=== PATIENT | female | born 1950 | race Hispanic/Latino ===

== ENCOUNTER 2018-07-23 11:40 | Inpatient (IN) | payer MEDICARE, OTHER ==
[2018-07-23 11:40] VITALS: BMI 42.9
--- NOTE | 2018-07-23 12:38 | ED PDOC ---
Arrival/HPI - General Time Seen by Provider: 07/23/18 12:17 Historian: Patient - History of Present Illness Narrative History of Present Illness (Text): 07/23/18 12:38 Patient is a 68 year old female whose past medical history includes type 2 diabetes mellitus, who presents to the Emergency department complaining of fatigue, chills, and decreased appetite. Patient reports that 4 days ago she started experiencing intermittent right flank pain, nausea and had several episodes of vomiting. She notes that that the product of her vomit was her previous day's meal undigested. Her vomiting resolved the following day, but patient started feeling fatigued, experiencing chills, and continued to experience intermittent right flank pain. Of note patient doesn't remember if her flank pain occurred before, during, or after her episodes of vomiting started. She notes that for the past few days she has also been experiencing decreased appetite. Patient states having normal bowel movements PMD: Time/Duration: < week Symptom Onset: Sudden Symptom Course: Unchanged Context: Home Past Medical History - Provider Review Nursing Documentation Reviewed: Yes - Infectious Disease Hx of Infectious Diseases: None - Cardiac Hx Hypertension: Yes - Pulmonary Hx Respiratory Disorders: No - Neurological Hx Neurological Disorder: No Hx Migraine: No - HEENT Hx HEENT Disorder: Yes Hx Cataracts: Yes - Renal Hx Renal Disorder: Yes Hx Pyelonephritis: Yes Other/Comment: Kidney stones - Endocrine/Metabolic Hx Diabetes Mellitus Type 2: Yes - Hematological/Oncological Hx Blood Disorders: No - Integumentary Hx Dermatological Disorder: No - Musculoskeletal/Rheumatological Hx Back Pain: Yes Hx Falls: Yes - Gastrointestinal Hx Gastrointestinal Disorders: Yes Hx Gastroesophageal Reflux: Yes - Genitourinary/Gynecological Hx Genitourinary Disorders: Yes Hx Hematuria: Yes Hx Urinary Tract Infection: Yes - Psychiatric Hx Substance Use: No - Surgical History Other/Comment: Broken ear drum Family/Social History - Physician Review Nursing Documentation Reviewed: Yes Family/Social History: No Known Family HX Smoking Status: Never Smoked Hx Alcohol Use: No Hx Substance Use: No Allergies/Home Meds Allergies/Adverse Reactions: Allergies No Known Allergies Allergy (Verified 07/23/18 12:47) Home Medications: Home Meds Medication Instructions Recorded Confirmed PARoxetine [Paxil] 20 mg PO BID 03/24/16 03/24/16 metFORMIN [glucOPHAGE] 1,000 mg PO BID 03/24/16 03/24/16 Review of Systems - Review of Systems Constitutional: Fatigue, Fevers, Night Sweats Eyes: absent: Vision Changes ENT: absent: Hearing Changes, Sore Throat, Rhinorrhea, Sinus Congestion Respiratory: absent: SOB, Cough Cardiovascular: absent: Chest Pain, Palpitations, Edema, AYERS Gastrointestinal: Nausea, Vomiting, Appetite Changes. absent: Abdominal Pain, Constipation, Diarrhea, Hematochezia, Food Intolerance Genitourinary Female: Frequency. absent: Dysuria, Hematuria, Vaginal Bleeding, Vaginal Discharge Musculoskeletal: Back Pain. absent: Arthralgias Skin: absent: Rash Neurological: absent: Headache, Dizziness Endocrine: absent: Diaphoresis, Polyuria Hemo/Lymphatic: absent: Easy Bleeding Psychiatric: absent: Depression Physical Exam - Physical Exam Narrative Physical Exam (Text): 07/23/18 12:38 Head: Atraumatic. Normocephalic. Eyes: PERRL. EOMI. Conjunctivae are not pale. Sclera anicteric. ENT: Mucous membranes are moist and intact. Oropharynx is clear and symmetric. Neck: Supple. Full ROM. No JVD. No lymphadenopathy. No meningeal signs. Cardiovascular: Regular rate. Regular rhythm. Systolic murmur noted. Distal pulses intact. Pulmonary/Chest: No evidence of respiratory distress. Clear to auscultation bilaterally. No wheezing, rales or rhonchi. No accessory muscle usage. Abdominal: Obese. Soft. Nontender. No pulsatile masses. No rebound or guarding. Back: Right sided cva tenderness noted. Extremities: No pitting edema. No cyanosis. No clubbing. No calf pain. Full range of motion in all extremities. No warmth or erythema. Skin: Skin is warm and dry. No petechiae. No purpura. Neurological: Alert, awake, and oriented. Motor and sensory exam intact. Psychiatric: Good eye contact. Normal interaction, affect, and behavior. Rectal: no gross bleeding Vital Signs Reviewed: Yes Temperature: Afebrile Blood Pressure: Normal Pulse: Regular Respiratory Rate: Normal Appearance: Positive for: Non-Toxic, Uncomfortable Pain Distress: Mild Mental Status: Positive for: Alert and Oriented X 3 Medical Decision Making ED Course and Treatment: 07/23/18 12:38 Impression: 68 year old patient who experienced episodes of nausea and vomiting 4 days ago, and is complaining of fatigue and chills for the past 3 days with decreased appetite. Plan: -- VBG -- Abdominal and Pelvic CT without contrast -- EKG -- Cardiac enzymes -- Blood work -- Chest X-ray -- Urine culture -- Urinalysis -- IV fluids -- Reassess and disposition Prior Visits: Notes and results from previous visits were reviewed. Patient was last seen in the emergency department on 03/24/16 for weakness and dizziness. She was hospitalized for UTI and pyelonephritis. Progress Notes: Patient on initial evaluation denies abdominal pain and reports "chronic" back pain. Some mild right sided cva tenderness is noted. She states she has been eating and moving her bowels without difficulty but generally has bee feeling "weak". SHE IS AFEBRILE. Initial WBC unremarkable. She is not tachycardic or tachypneic. Blood pressure stable on re-evaluation. Although lactate is mildly elevated she currently does not exhibit SIRS although she is diabetic and I feel at risk of this. UTI noted. Cultures ordered and iv antibiotics initiated. 07/23/18 13:20 Chest X-ray: Dictator : Kiel Cooney MD IMPRESSION: No active disease. 07/23/18 14:[address] without IV Contrast: Dictator : Kiel Cooney MD IMPRESSION: There is an 11 mm stone in the proximal right ureter with mild hydronephrosis. There is a large rim calcified stone in the gallbladder. This measures 4.5 cm in diameter and 6 cm in length. 07/23/18 14:37 On re-examination the patient denies acute pain or nausea. CT findings reviewed with patient as well as labs revealing Cr of 2.0. Case d.w PMD Dr. Romo. After communicating with admitting, request to admit to hospitalist service at this time. I communicated with hospitalist Dr. Huerta, who will admit patient to her service at this time. I communicated with on-call urologist Dr. Mcallister regarding UTI, abnormal CT findings. Dr. Mcallister will take patient to OR today. Dr. Huerta evaluated patient in ED, who reportedly informed her earlier in the day she felt very weak and "fell to ground" but denies trauma or injury. Given this history we will admit to telmetry for monitoring for possible near syncope, risk of sepsis. She denies chest pain or shortness of breath. Dr. Romo has been updated with admitting plan and admitting physician. Gallstone noted on CT, although patient currently with no palpable abdominal pain, and initial LFTs and WBC unremarkable. 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 I have reviewed the chart and agree that the record accurately reflects my personal performance of the history, physical exam, medical decision making, and the department course for this patient. I have also personally directed, reviewed, and agree with the discharge instructions and disposition. Disposition/Present on Arrival - Present on Arrival Any Indicators Present on Arrival: Yes History of DVT/PE: No History of Uncontrolled Diabetes: Yes Urinary Catheter: No History Surgical Site Infection Following: None - Disposition Have Diagnosis and Disposition been Completed?: Yes Diagnosis: Urinary tract infection, Near syncope, Nephrolithiasis Disposition: HOSPITALIZED Disposition Time: 13:50 Patient Plan: Admission, Telemetry Patient Problems: Current Active Problems Problem Status Onset Near syncope Acute Nephrolithiasis Acute Urinary tract infection Acute Condition: SERIOUS
[2018-07-23 13:08] LABS: URINE BILIRUBIN MODERATE (NEGATIVE); URINE BLOOD LARGE (NEGATIVE); URINE GLUCOSE (UA) NEGATIVE (NEGATIVE); URINE LEUKOCYTE ESTERASE LARGE Leu/uL (NEGATIVE); URINE PROTEIN 100 mg/dL (<30 mg/dL)
[2018-07-23 13:11] LABS: URINE APPEARANCE CLOUDY (CLEAR); URINE COLOR DARK YELLOW (YELLOW)
--- NOTE | 2018-07-23 13:14 | RAD ---
Date of service: 07/23/2018 PROCEDURE: CHEST RADIOGRAPH, 1 VIEW HISTORY: nausea/vomiting, back pain COMPARISON: 03/24/2016 FINDINGS: LUNGS: Clear. PLEURA: No pneumothorax or pleural fluid seen. CARDIOVASCULAR: Mild cardiomegaly OSSEOUS STRUCTURES: No significant abnormalities. VISUALIZED UPPER ABDOMEN: Normal. OTHER FINDINGS: None. IMPRESSION: No active disease.
[2018-07-23 13:17] LABS: URINE BACTERIA LARGE (NEG); URINE EPITHELIAL CELLS 0 - 2 /hpf (0-5); URINE WBC TNTC /hpf (0-6)
[2018-07-23] MEDS ORDERED: cefTRIAXone 1 gm 1 GM/100 ML BAG IVPB STA (13:18)
[2018-07-23 13:33] LABS: BASO # 0.01 K/mm3 (0.0-2.0); BASO % 0.1 % (0.0-3.0); EOS % 0.4 % (1.5-5.0); GRAN # 8.16 (1.4-6.5); GRAN % 87.4 % (50.0-68.0); HEMOGLOBIN 14.9 g/dL (12.0-16.0); LYMPH # 0.5 (1.2-3.4); LYMPH % 5.6 % (22.0-35.0); MEAN CELL VOLUME 85.1 fl (80.0-105.0); MEAN CORPUSCULAR HEMOGLOBIN 29.6 pg (25.0-35.0); MEAN CORPUSCULAR HGB CONC 34.8 g/dl (31.0-37.0); MEAN PLATELET VOLUME 9.2 fl (7.0-11.0); MONO # 0.6 (0.1-0.6); MONO % 6.5 % (1.0-6.0); RBC 5.03 10^6/uL (3.5-6.1); RED CELL DISTRIBUTION WIDTH 13.4 % (11.5-14.5); WHITE BLOOD COUNT 9.3 10^3/uL (4.5-11.0)
[2018-07-23 13:34] LABS: VENOUS BLOOD GAS BASE EXCESS -2.8 mmol/L (0.0-2.0); VENOUS BLOOD GAS PO2 33 mm/Hg (30-55)
[2018-07-23 13:37] LABS: INR 1.12; PARTIAL THROMBOPLASTIN TIME 28.5 Seconds (25.1-36.5); PROTHROMBIN TIME 12.9 SECONDS (9.4-12.5)
[2018-07-23 13:52] LABS: ALBUMIN 3.9 g/dL (3.0-4.8); ALT/SGPT 18 U/L (7-56); AST/SGOT 31 U/L (14-36); BLOOD UREA NITROGEN 39 mg/dL (7-21); CALCIUM 10.3 mg/dL (8.4-10.5); GFR NON-AFRICAN AMERICAN 25
[2018-07-23] MEDS ORDERED: Sodium Chloride 0.9% 1,000 ML IV STA (14:04)
[2018-07-23 14:22] LABS: TROPONIN I < 0.01 ng/mL
[2018-07-23] MEDS: Sodium Chloride 0.9% 1,000 ML IV SCH (14:24)
--- NOTE | 2018-07-23 14:31 | CT ---
Date of service: 07/23/2018 PROCEDURE: CT Abdomen and Pelvis without intravenous contrast HISTORY: right flank pain COMPARISON: 03/24/2016 TECHNIQUE: Without contrast. Contrast dose: Radiation dose: Total exam DLP = 1202.29 mGy-cm. This CT exam was performed using one or more of the following dose reduction techniques: Automated exposure control, adjustment of the mA and/or kV according to patient size, and/or use of iterative reconstruction technique. FINDINGS: LOWER THORAX: Unremarkable. LIVER: Unremarkable. No gross lesion or ductal dilatation. GALLBLADDER AND BILE DUCTS: There is a large rim calcified stone in the gallbladder. This measures 4.5 cm in diameter and 6 cm in length. PANCREAS: Unremarkable. No gross lesion or ductal dilatation. SPLEEN: Unremarkable. ADRENALS: Unremarkable. No mass. KIDNEYS AND URETERS: There is an 11 mm stone in the proximal right ureter with mild hydronephrosis. VASCULATURE: Unremarkable. No aortic aneurysm. No aortic atherosclerotic calcification or mural plaque present. BOWEL: Unremarkable. No obstruction. No gross mural thickening. APPENDIX: Unremarkable. Normal appendix. PERITONEUM: Unremarkable. No free fluid. No free air. LYMPH NODES: Unremarkable. No enlarged lymph nodes. BLADDER: Unremarkable. REPRODUCTIVE: 4.8 cm right adnexal cyst. BONES: Multilevel disc degeneration in the lumbar spine OTHER FINDINGS: None. IMPRESSION: There is an 11 mm stone in the proximal right ureter with mild hydronephrosis. There is a large rim calcified stone in the gallbladder. This measures 4.5 cm in diameter and 6 cm in length.
[2018-07-23] MEDS: Potassium Chloride 20 mEq ER Tab PO STA ×2 (14:43→14:47)
[2018-07-23] MEDS ORDERED: Morphine 2 mg/ml ISec IVP PRN (15:09)
--- NOTE | 2018-07-23 15:28 | CP.PCM.HP ---
<Lori Bunch - Last Filed: 07/23/18 15:03> History of Present Illness - History of Present Illness History of Present Illness: Lori Bunch, PGY2, H&P for Dr Huerta: CC: right flank pain, vomiting 68 year old female with PMH HTN, DM, arthritis, nerve damage, presents for intermittent right flank pain, vomiting, decreased appetite for past 4-5 days. Patient states that she had a "urinary infection" 2 years ago with similar symptoms. Reports sujective fevers, chills, nausea, vomiting, dysuria since Wednesday. Denies chest pain, sob, cough, body aches, abdominal pain, diarrhea, constipation, leg swelling, headaches, blurred vision, neck pain. In Ed, patient afebrile, hemodynamically stable. CT abd pelvis showed 11 mm right sided ureteral stone with hydronephrosis. Dr Mcallister notified, will undergo OR procedure. 12 point ROS obtained and neg, except as per HPI. PMD [facility] [employer] PMH: HTN (controlled), DM, arthritis, nerve damage PSH: denies All: seasonal FH: CHF in father, mother, aunt No cancer Sh: lives by self. brother in above apartment in 2 family house. Denies alcohol, tobacco, drug use. Lost cane with good support recently. Present on Admission - Present on Admission Any Indicators Present on Admission: No History of DVT/PE: No History of Uncontrolled Diabetes: No Urinary Catheter: No Decubitus Ulcer Present: No Review of Systems - Review of Systems All systems: reviewed and no additional remarkable complaints except Review of Systems: as per hPI Past Patient History - Infectious Disease Hx of Infectious Diseases: None - Past Social History Smoking Status: Never Smoked - CARDIAC Hx Hypertension: Yes - PULMONARY Hx Respiratory Disorders: No - NEUROLOGICAL Hx Neurological Disorder: No Hx Migraine: No - HEENT Hx HEENT Problems: Yes Hx Cataracts: Yes - RENAL Hx Chronic Kidney Disease: Yes Hx Pyelonephritis: Yes Other/Comment: Kidney stones - ENDOCRINE/METABOLIC Hx Diabetes Mellitus Type 2: Yes - HEMATOLOGICAL/ONCOLOGICAL Hx Blood Disorders: No - INTEGUMENTARY Hx Dermatological Problems: No - MUSCULOSKELETAL/RHEUMATOLOGICAL Hx Back Pain: Yes Hx Falls: Yes - GASTROINTESTINAL Hx Gastrointestinal Disorders: Yes Hx Gastroesophageal Reflux: Yes - GENITOURINARY/GYNECOLOGICAL Hx Genitourinary Disorders: Yes Hx Hematuria: Yes Hx Urinary Tract Infection: Yes - PSYCHIATRIC Hx Substance Use: No - SURGICAL HISTORY Other/Comment: Broken ear drum Meds Allergies/Adverse Reactions: Allergies Allergy/AdvReac Type Severity Reaction Status Date / Time No Known Allergies Allergy Verified 07/23/18 12:47 Physical Exam - Constitutional Appears: Non-toxic, No Acute Distress - Head Exam Head Exam: ATRAUMATIC, NORMOCEPHALIC - Eye Exam Eye Exam: EOMI, PERRL. absent: Conjunctival injection, Nystagmus, Scleral icterus Pupil Exam: NORMAL ACCOMODATION, PERRL. absent: Miosis, Mydriatic - ENT Exam ENT Exam: Mucous Membranes Moist - Neck Exam Neck exam: Positive for: Full Rom - Respiratory Exam Respiratory Exam: Clear to Auscultation Bilateral, NORMAL BREATHING PATTERN. absent: Decreased Breath Sounds, Rales, Rhonchi, Wheezes, Respiratory Distress, Stridor - Cardiovascular Exam Cardiovascular Exam: RRR, +S1, +S2. absent: Systolic Murmur - GI/Abdominal Exam GI & Abdominal Exam: Normal Bowel Sounds, Soft (+ morbidly obese). absent: Firm, Rebound, Rigid, Tenderness - Extremities Exam Extremities exam: Positive for: normal inspection. Negative for: calf tenderness, pedal edema - Back Exam Back exam: NORMAL INSPECTION. absent: CVA tenderness (L), CVA tenderness (R) - Neurological Exam Neurological exam: Alert, Oriented x3 - Psychiatric Exam Psychiatric exam: Normal Affect, Normal Mood - Skin Skin Exam: Dry, Normal Color, Warm Results - Vital Signs Recent Vital Signs: Last Vital Signs Temp 98.1 F 07/23/18 11:40 Pulse 85 07/23/18 14:22 Resp 18 07/23/18 14:22 BP 138/70 07/23/18 14:22 Pulse Ox 95 07/23/18 14:22 - Labs Result Diagrams: 07/23/18 13:05 07/23/18 13:05 Labs: Laboratory Results - last 24 hr 07/23/18 07/23/18 07/23/18 13:00 13:05 13:05 WBC 9.3 RBC 5.03 Hgb 14.9 Hct 42.8 MCV 85.1 MCH 29.6 MCHC 34.8 RDW 13.4 Plt Count 178 MPV 9.2 Gran % 87.4 H Lymph % (Auto) 5.6 L Oliver % (Auto) 6.5 H Eos % (Auto) 0.4 L Baso % (Auto) 0.1 Gran # 8.16 H Lymph # (Auto) 0.5 L Oliver # (Auto) 0.6 Eos # (Auto) 0.0 Baso # (Auto) 0.01 PT 12.9 H INR 1.12 APTT 28.5 pO2 VBG pH VBG pCO2 VBG HCO3 VBG Total CO2 VBG O2 Sat (Calc) VBG Base Excess VBG Potassium Sodium Chloride Glucose Lactate FiO2 Potassium Carbon Dioxide Anion Gap BUN Creatinine Est GFR ( Amer) Est GFR (Non-Af Amer) Random Glucose Calcium Total Bilirubin AST ALT Alkaline Phosphatase Lactate Dehydrogenase Total Creatine Kinase Troponin I Total Protein Albumin Globulin Albumin/Globulin Ratio Venous Blood Potassium Urine Color Dark yellow Urine Appearance Cloudy Urine pH 6.[address] [place] >= 1.030 Urine Protein 100 H Urine Glucose (UA) Negative Urine Ketones Trace H Urine Blood Large H Urine Nitrate Positive H Urine Bilirubin Moderate H Urine Urobilinogen 4.0 H Ur Leukocyte Esterase Large H Urine RBC 2 - 5 Urine WBC Tntc Ur Epithelial Cells 0 - 2 Urine Bacteria Large 07/23/18 07/23/18 13:05 13:05 WBC RBC Hgb Hct MCV MCH MCHC RDW Plt Count MPV Gran % Lymph % (Auto) Oliver % (Auto) Eos % (Auto) Baso % (Auto) Gran # Lymph # (Auto) Oliver # (Auto) Eos # (Auto) Baso # (Auto) PT INR APTT pO2 33 VBG pH 7.30 L VBG pCO2 49.0 VBG HCO3 24.1 VBG Total CO2 25.6 VBG O2 Sat (Calc) 65.2 H VBG Base Excess -2.8 L VBG Potassium 3.6 Sodium 135.0 137 Chloride 99.0 99 Glucose 182 H Lactate 2.7 H FiO2 21.0 Potassium 3.5 L Carbon Dioxide 23 Anion Gap 19 BUN 39 H Creatinine 2.0 H Est GFR ( Amer) 30 Est GFR (Non-Af Amer) 25 Random Glucose 178 H Calcium 10.3 Total Bilirubin 1.6 H AST 31 ALT 18 Alkaline Phosphatase 153 H Lactate Dehydrogenase 413 Total Creatine Kinase 56 Troponin I < 0.01 Total Protein 7.8 Albumin 3.9 Globulin 3.9 Albumin/Globulin Ratio 1.0 L Venous Blood Potassium 3.6 Urine Color Urine Appearance Urine pH Ur Specific [place] Urine Protein Urine Glucose (UA) Urine Ketones Urine Blood Urine Nitrate Urine Bilirubin Urine Urobilinogen Ur Leukocyte Esterase Urine RBC Urine WBC Ur Epithelial Cells Urine Bacteria Assessment & Plan - Assessment and Plan (Free Text) Assessment: 68 year old female with PMH HTN, DM, arthritis, nerve damage, presents for intermittent right flank pain, vomiting, decreased appetite, found to have large right sided obstructing ureteral stone and possible pyelonephritis: Nephrolithiasis and UTI/?pyelonephritis: - CT abd pelvis shows 11 mm stone in the proximal right ureter with mild hydronephrosis. - Dr Mcallister Urology on board. appreciate recs. Plan for urgent stone removal. appreciate help. - zofran prn, morphine prn pain - UA pos for blood and UTI, - lactate 2.4 - 2/2 metformin vs unlikely sepsis. Will stop metformin in house. - f/u urine culture, blood culture - Monitor vitals Elevated bilirubin: 2/2 obstructing gallstone - t bili 1.6, AST/ALT normal. ALP 153 - CT abd pelvis shows a large rim calcified stone in the gallbladder. This measures 4.5 cm in diameter and 6 cm in length. - Abd US - direct bili ordered - Consider surgery consult/GI consult. Hx of HTN: - BP on low end in ED - will hold home losartan Hx of DM: - lactate 2.4 - hold home metformin - Hgb A1C - ISS low - NPO currently PPX: protonix, SCDs NPO PT eval Case seen and discussed with Dr Huerta. <No Huerta - Last Filed: 07/24/18 11:53> Results - Vital Signs Recent Vital Signs: Last Vital Signs Temp 98.4 F 07/24/18 06:00 Pulse 69 07/24/18 06:00 Resp 20 07/24/18 06:00 BP 114/58 L 07/24/18 06:00 Pulse Ox 97 07/24/18 06:00 - Labs Result Diagrams: 07/24/18 07:30 07/24/18 07:30 Labs: Laboratory Results - last 24 hr 07/23/18 07/23/18 07/23/18 13:00 13:05 13:05 WBC 9.3 RBC 5.03 Hgb 14.9 Hct 42.8 MCV 85.1 MCH 29.6 MCHC 34.8 RDW 13.4 Plt Count 178 MPV 9.2 Gran % 87.4 H Lymph % (Auto) 5.6 L Oliver % (Auto) 6.5 H Eos % (Auto) 0.4 L Baso % (Auto) 0.1 Gran # 8.16 H Lymph # (Auto) 0.5 L Oliver # (Auto) 0.6 Eos # (Auto) 0.0 Baso # (Auto) 0.01 PT 12.9 H INR 1.12 APTT 28.5 pO2 VBG pH VBG pCO2 VBG HCO3 VBG Total CO2 VBG O2 Sat (Calc) VBG Base Excess VBG Potassium Sodium Chloride Glucose Lactate FiO2 Potassium Carbon Dioxide Anion Gap BUN Creatinine Est GFR ( Amer) Est GFR (Non-Af Amer) POC Glucose (mg/dL) Random Glucose Uric Acid Calcium Phosphorus Magnesium Total Bilirubin Direct Bilirubin AST ALT Alkaline Phosphatase Lactate Dehydrogenase Total Creatine Kinase Troponin I Total Protein Albumin Globulin Albumin/Globulin Ratio Venous Blood Potassium Urine Color Dark yellow Urine Appearance Cloudy Urine pH 6.[address] [place] >= 1.030 Urine Protein 100 H Urine Glucose (UA) Negative Urine Ketones Trace H Urine Blood Large H Urine Nitrate Positive H Urine Bilirubin Moderate H Urine Urobilinogen 4.0 H Ur Leukocyte Esterase Large H Urine RBC 2 - 5 Urine WBC Tntc Ur Epithelial Cells 0 - 2 Urine Bacteria Large 07/23/18 07/23/18 07/23/18 13:05 13:05 13:16 WBC RBC Hgb Hct MCV MCH MCHC RDW Plt Count MPV Gran % Lymph % (Auto) Oliver % (Auto) Eos % (Auto) Baso % (Auto) Gran # Lymph # (Auto) Oliver # (Auto) Eos # (Auto) Baso # (Auto) PT INR APTT pO2 33 VBG pH 7.30 L VBG pCO2 49.0 VBG HCO3 24.1 VBG Total CO2 25.6 VBG O2 Sat (Calc) 65.2 H VBG Base Excess -2.8 L VBG Potassium 3.6 Sodium 135.0 137 Chloride 99.0 99 Glucose 182 H Lactate 2.7 H FiO2 21.0 Potassium 3.5 L Carbon Dioxide 23 Anion Gap 19 BUN 39 H Creatinine 2.0 H Est GFR ( Amer) 30 Est GFR (Non-Af Amer) 25 POC Glucose (mg/dL) 176 H Random Glucose 178 H Uric Acid Calcium 10.3 Phosphorus Magnesium Total Bilirubin 1.6 H Direct Bilirubin AST 31 ALT 18 Alkaline Phosphatase 153 H Lactate Dehydrogenase 413 Total Creatine Kinase 56 Troponin I < 0.01 Total Protein 7.8 Albumin 3.9 Globulin 3.9 Albumin/Globulin Ratio 1.0 L Venous Blood Potassium 3.6 Urine Color Urine Appearance Urine pH Ur Specific [place] Urine Protein Urine Glucose (UA) Urine Ketones Urine Blood Urine Nitrate Urine Bilirubin Urine Urobilinogen Ur Leukocyte Esterase Urine RBC Urine WBC Ur Epithelial Cells Urine Bacteria 07/23/18 07/23/18 07/23/18 14:30 14:30 16:58 WBC RBC Hgb Hct MCV MCH MCHC RDW Plt Count MPV Gran % Lymph % (Auto) Oliver % (Auto) Eos % (Auto) Baso % (Auto) Gran # Lymph # (Auto) Oliver # (Auto) Eos # (Auto) Baso # (Auto) PT INR APTT pO2 VBG pH VBG pCO2 VBG HCO3 VBG Total CO2 VBG O2 Sat (Calc) VBG Base Excess VBG Potassium Sodium Chloride Glucose Lactate FiO2 Potassium Carbon Dioxide Anion Gap BUN Creatinine Est GFR ( Amer) Est GFR (Non-Af Amer) POC Glucose (mg/dL) 122 H Random Glucose Uric Acid 8.3 H Calcium Phosphorus Magnesium Total Bilirubin Direct Bilirubin 1.2 H AST ALT Alkaline Phosphatase Lactate Dehydrogenase Total Creatine Kinase Troponin I Total Protein Albumin Globulin Albumin/Globulin Ratio Venous Blood Potassium Urine Color Urine Appearance Urine pH Ur Specific [place] Urine Protein Urine Glucose (UA) Urine Ketones Urine Blood Urine Nitrate Urine Bilirubin Urine Urobilinogen Ur Leukocyte Esterase Urine RBC Urine WBC Ur Epithelial Cells Urine Bacteria 07/23/18 07/23/18 07/24/18 20:06 21:31 07:30 WBC 7.5 RBC 4.44 Hgb 12.7 D Hct 37.8 MCV 85.1 MCH 28.6 MCHC 33.6 RDW 13.4 Plt Count 159 MPV 8.8 Gran % 75.5 H Lymph % (Auto) 11.5 L Oliver % (Auto) 11.2 H Eos % (Auto) 1.5 Baso % (Auto) 0.3 Gran # 5.66 Lymph # (Auto) 0.9 L Oliver # (Auto) 0.8 H Eos # (Auto) 0.1 Baso # (Auto) 0.02 PT INR APTT pO2 19 L VBG pH 7.27 L VBG pCO2 56.0 VBG HCO3 25.7 VBG Total CO2 27.4 VBG O2 Sat (Calc) 26.7 L VBG Base Excess -2.1 L VBG Potassium 3.4 L Sodium 137.0 Chloride 100.0 Glucose 142 H Lactate 1.8 FiO2 21.0 Potassium Carbon Dioxide Anion Gap BUN Creatinine Est GFR ( Amer) Est GFR (Non-Af Amer) POC Glucose (mg/dL) 123 H Random Glucose Uric Acid Calcium Phosphorus Magnesium Total Bilirubin Direct Bilirubin AST ALT Alkaline Phosphatase Lactate Dehydrogenase Total Creatine Kinase Troponin I Total Protein Albumin Globulin Albumin/Globulin Ratio Venous Blood Potassium 3.4 L Urine Color Urine Appearance Urine pH Ur Specific [place] Urine Protein Urine Glucose (UA) Urine Ketones Urine Blood Urine Nitrate Urine Bilirubin Urine Urobilinogen Ur Leukocyte Esterase Urine RBC Urine WBC Ur Epithelial Cells Urine Bacteria 07/24/18 07:30 WBC RBC Hgb Hct MCV MCH MCHC RDW Plt Count MPV Gran % Lymph % (Auto) Oliver % (Auto) Eos % (Auto) Baso % (Auto) Gran # Lymph # (Auto) Oliver # (Auto) Eos # (Auto) Baso # (Auto) PT INR APTT pO2 VBG pH VBG pCO2 VBG HCO3 VBG Total CO2 VBG O2 Sat (Calc) VBG Base Excess VBG Potassium Sodium 137 Chloride 105 Glucose Lactate FiO2 Potassium 4.0 Carbon Dioxide 24 Anion Gap 12 BUN 37 H Creatinine 1.6 H Est GFR ( Amer) 39 Est GFR (Non-Af Amer) 32 POC Glucose (mg/dL) Random Glucose 99 Uric Acid Calcium 9.7 Phosphorus 4.3 Magnesium 1.9 Total Bilirubin 0.8 Direct Bilirubin AST 30 ALT 26 Alkaline Phosphatase 118 Lactate Dehydrogenase Total Creatine Kinase Troponin I Total Protein 6.5 Albumin 3.2 Globulin 3.3 Albumin/Globulin Ratio 1.0 L Venous Blood Potassium Urine Color Urine Appearance Urine pH Ur Specific [place] Urine Protein Urine Glucose (UA) Urine Ketones Urine Blood Urine Nitrate Urine Bilirubin Urine Urobilinogen Ur Leukocyte Esterase Urine RBC Urine WBC Ur Epithelial Cells Urine Bacteria Attending/Attestation - Attestation I have personally seen and examined this patient.: Yes I have fully participated in the care of the patient.: Yes I have reviewed all pertinent clinical information: Yes Notes (Text): 07/24/18 11:48 attending note; Patient seen and examined with anh in the ER. Patient is alert and awake. Currently denies any fevers, chills. Complaining of mild urinary discomfort. Denies any chest pain, shortness of breath. Denies any nausea, vomiting. Patient is a 68 year old female with PMH of HTN, DM, arthritis, obesity presents for intermittent right flank pain, vomiting, decreased appetite for past 4-5 days. Patient is complaining of fevers and chills for the past few days. Patient also had right flank pain. CT abdomen and pelvis showed 11 millimeter right ureteral stone with hydronep hrosis. case discussed with urology in detail by ER attending. Plan for cystoscopy And ureteral stent placement today. Diabetes; continue IV fluid. patient is nothing by mouth for the procedure. Monitor with regular insulin sliding scale. IV morphine for pain control. The diagnosis, treatment plan discussed with patient in detail. Upon discharge the patient will follow-up with PMD Dr. Romo. Patient was signed out to PMD. He will follow the patient from tomorrow. 07/24/18 11:52
--- NOTE | 2018-07-23 15:40 | CARD ---
APPROVED REPORT Date of service: 07/23/2018 EKG Measurement Heart [id number] <Conclusion> Normal sinus rhythm Normal ECG
--- NOTE | 2018-07-23 16:22 | US ---
Date of service: 07/23/2018 HISTORY: elevated total bili, stone? COMPARISON: CT scan same day TECHNIQUE: Sonographic evaluation of the abdomen. FINDINGS: LIVER: Measures 15.1 x 15.1 cm. Normal echogenicity of the liver parenchyma. No mass. No intrahepatic bile duct dilatation. GALLBLADDER: Large gallstone with rim calcification COMMON BILE DUCT: Measures 5 mm. No stones. No dilatation. PANCREAS: Unremarkable as visualized. No mass. No ductal dilatation. RIGHT KIDNEY: Measures 10.27 x 6.73 x 5.66cm. Normal echogenicity. No calculus, mass, or hydronephrosis. Right-sided hydronephrosis LEFT KIDNEY: Measures 10.18 x 5.50 x 6.10cm. Normal echogenicity. No calculus, mass, or hydronephrosis. SPLEEN: Normal in size and contour. No mass. 12.33 x 4.69 AORTA: No aneurysmal dilatation. IVC: Unremarkable. OTHER FINDINGS: None. IMPRESSION: Large gallstone. Right-sided hydronephrosis secondary to proximal ureteral stone. Both findings demonstrated on CT from earlier today
[2018-07-23] MEDS ORDERED: Gentamicin 80 mg/2mL Inj. ONE (16:49)
[2018-07-23] MEDS ORDERED: Iohexol 240 (50 ml) ONE (16:49)
[2018-07-23] MEDS ORDERED: Propofol 10 mg/ml Inj (20 ML) ONE (17:31)
[2018-07-23] MEDS ORDERED: Midazolam 2 MG/2 ML VIAL ONE (17:32)
[2018-07-23] MEDS ORDERED: Lactated Ringer's 1,000 ML IV SCH (18:15)
[2018-07-23 20:31] LABS: VENOUS BLOOD GAS BASE EXCESS -2.1 mmol/L (0.0-2.0); VENOUS BLOOD GAS PO2 19 mm/Hg (30-55); VENOUS BLOOD PH 7.27 (7.32-7.43)
[2018-07-23] MEDS: Insulin Reg-LOW-Coverage SC SCH (21:57)
[2018-07-24] MEDS: Sodium Chloride 0.9% 1,000 ML IV SCH ×2 (03:50→17:35)
--- NOTE | 2018-07-24 06:07 | OP ---
PROCEDURE DATE: 07/23/2018 PREOPERATIVE DIAGNOSES: Right ureteral calculus, right hydronephrosis. POSTOPERATIVE DIAGNOSES: Right ureteral calculus, right hydronephrosis. PROCEDURE: Cystoscopy, right retrograde pyelogram, insertion of right ureteral stent. ATTENDING SURGEON: Evangelista Mcallister MD. ANESTHESIA: General. SPECIMENS: There were none. DRAIN: A 6 x 24 right ureteral stent. COMPLICATIONS: There were none. OPERATIVE FINDINGS: After informed consent was obtained, the patient was taken to the operating room, placed on the operating table. Anesthesia was administered. The patient was then placed in the dorsal lithotomy position and prepped and draped in the usual sterile fashion. A 21-Yoruba cystoscope was passed into the patient's bladder and a full survey inspection was performed. There were no stones, papillary tumors or foreign bodies of the bladder noted. Both ureteral orifices were visualized and appeared within normal limits. At this point, a 5-Yoruba [place] catheter was introduced through the scope into the right ureteral orifice. When inside the orifice, contrast was then instilled into the ureter during real-time fluoroscopy. There was noted to be a filling defect in the upper ureter with dilatation of the ureter above this and mild hydronephrosis. At this point, a sensor wire was obtained. The sensor wire was passed through the open-ended catheter and advanced fluoroscopically up the ureter. It was able to be manipulated around the filling defect and coiled in the upper collecting system. At this point, the open-ended ureteral catheter was removed and a 6 x 24 stent was obtained. The stent was then passed through the cystoscope over the wire and into the right ureter. The stent was advanced under both direct and fluoroscopic guidance until it was in at the appropriate position. When the stent was in place, the guidewire was removed. A coil was seen in the renal pelvis on fluoroscopy. A coil was seen in the bladder on cystoscopy. A large amount of turbid urine was then noted to be exiting from the stent. At this point, the procedure was completed. The bladder was drained. The cystoscope was removed. The patient tolerated the procedure well and she was taken to the recovery room awake in stable condition. Evangelista Mcallister MD
[2018-07-24 08:11] LABS: BASO # 0.02 K/mm3 (0.0-2.0); BASO % 0.3 % (0.0-3.0); EOS # 0.1 (0.0-0.7); EOS % 1.5 % (1.5-5.0); GRAN # 5.66 (1.4-6.5); GRAN % 75.5 % (50.0-68.0); HEMOGLOBIN 12.7 g/dL (12.0-16.0); LYMPH # 0.9 (1.2-3.4); LYMPH % 11.5 % (22.0-35.0); MEAN CELL VOLUME 85.1 fl (80.0-105.0); MEAN CORPUSCULAR HEMOGLOBIN 28.6 pg (25.0-35.0); MEAN CORPUSCULAR HGB CONC 33.6 g/dl (31.0-37.0); MEAN PLATELET VOLUME 8.8 fl (7.0-11.0); MONO # 0.8 (0.1-0.6); MONO % 11.2 % (1.0-6.0); RBC 4.44 10^6/uL (3.5-6.1); RED CELL DISTRIBUTION WIDTH 13.4 % (11.5-14.5); WHITE BLOOD COUNT 7.5 10^3/uL (4.5-11.0)
[2018-07-24 08:40] LABS: ALBUMIN 3.2 g/dL (3.0-4.8); CALCIUM 9.7 mg/dL (8.4-10.5)
[2018-07-24] MEDS ORDERED: cefTRIAXone 1 gm 1 GM/100 ML BAG IVPB SCH (10:00)
[2018-07-24] MEDS: Insulin Reg-LOW-Coverage SC SCH ×4 (10:34→21:58)
--- NOTE | 2018-07-24 14:33 | PN ---
DATE: 07/23/2018 SUBJECTIVE: A 68-year-old female who complained of right flank pain and nausea with vomiting. Patient came to the ER, evaluated, found to have kidney stone 11 mm and urinary tract infection. Patient since in the ER, she got the IV fluid and IV antibiotic, seems doing well and seems doing okay. Nausea is better and she feels better. PHYSICAL EXAMINATION: VITAL SIGNS: Temperature 98.4, heart rate 78, blood pressure 133/80, respiratory rate 21, saturation 96% on room air. HEAD AND NECK: Normal. No JVD. No thyromegaly. CHEST: Clear bilateral. CARDIAC: First sounds and second sounds normal. ABDOMEN: Obese. EXTREMITIES: No edema. NEUROLOGIC: Normal. LABORATORY DATA: White count 9.3, hemoglobin 14.9, hematocrit 42.8, platelets 178. PT, PTT is normal. Chemistry shows sodium 137, potassium 3.5, chloride 99, bicarb 23, BUN 39, creatinine 2, blood sugar 178, calcium 10.3, bilirubin 1.6. AST and ALT is normal. Alkaline phosphatase 153. Also, the patient had a CT of the abdomen, which shows right kidney very large rim calcified stone in the gallbladder measured 4.5 cm in diameter and 6 cm in length that is in the gallbladder, right upper quadrant and also there is 11 mm stone in the proximal right ureter with mild hydronephrosis. IMPRESSION AND PLAN: 1. Acute renal failure. 2. Acute pyelonephritis. Patient has vomiting, nausea. We will give the patient IV fluid, Zofran and IV antibiotic. We will get an ID consult and we will follow up clinically. Patient also has large gallstones in the gallbladder, seems asymptomatic. We will monitor her condition. At this time, continue current treatment. Resume her medications and we will follow up clinically. Matthias Romo MD
[2018-07-24] MEDS: Meropenem IV 1 gm in NS 1 GM/50 ML BAG IVPB SCH ×2 (16:00→21:10)
--- NOTE | 2018-07-25 01:06 | CON ---
DATE: 07/24/2018 SUBJECTIVE: The patient is seen earlier today in 267, bed 1. CHIEF COMPLAINT: Positive blood cultures x1 day. HISTORY OF PRESENT ILLNESS: This is a 68-year-old female with a history of morbid obesity with BMI of 42, anxiety, depression, arthritis, cataract, GERD, diabetes mellitus, hypertension, coronary artery disease, who I had seen in 03/2016, at that time with infection, was treated, now returns with nausea, vomiting, and found to have positive blood cultures and Gram-negative kareem in the blood and urine. Infectious Disease consultation requested. The patient states that although she has not had fevers here, she was having chills at home and she was having nausea and vomiting, fatigue, poor appetite. She was having right-sided flank pain with the nausea and several episodes of vomiting, and she was having frequency but no dysuria. No headaches or blurred vision. No cough. No shortness of breath or hemoptysis. PAST MEDICAL HISTORY: Significant for diabetes mellitus, hypertension, coronary artery disease, GERD, cataract, arthritis, depression, anxiety, morbid obesity with a BMI of 42. PAST SURGICAL HISTORY: The patient is significant for a broken ear drum on surgery. ALLERGIES: THE PATIENT HAS NO KNOWN ALLERGIES. MEDICATIONS: At home, include the Paxil and metformin. GENERAL: She is in bed, nontoxic, answering questions appropriately. VITAL SIGNS: Temperature of 98, heart rate of 64 to 75, respiratory rate of 21, and blood pressure 114/58. HEENT: Unremarkable. NECK: Supple. LUNGS: Have decreased breath sounds. HEART: Normal S1, S2. ABDOMEN: Soft, nontender. No rebound or guarding. LABORATORY DATA: Laboratory examination reveals white count is 9.3, hemoglobin of 14, platelets of 178. Coagulation is noted, and the chemistries reveals the patient's creatinine was 2.0 on admission, and prior to that the creatinine was 1.0 in 03/2016, now appears to be improving down to 1.6. Urinalysis significant with too numerous to count organisms, large bacteria. Microbiology, Gram-negative kareem in the blood and Gram-negative kareem in the urine. DIAGNOSTIC DATA: The patient had a CAT scan of the abdomen and pelvis, which revealed the patient to have an 11-mm stone in the right ureter with hydronephrosis and large rim calcified stone in the gallbladder, and Dr. Mcallister's operative note. The patient was taken to the OR yesterday, had a cystoscopy with right retrograde pyelogram, insertion of a right ureteral stent, right ureteral calculus, and right hydronephrosis. Dr. Mills's note is reviewed. ASSESSMENT AND PLAN: This is a 68-year-old female with Gram-negative kareem bacteremia secondary to Gram-negative kareem in the urine, status post cystoscopy with stent placement for renal stone with acute kidney injury with creatinine that has changed from creatinine of 1.0 on the last admission 2 years ago, and now with a creatinine of 2, currently on ceftriaxone which probably will be adequate. However, since the patient has Gram-negative kareem bacteremia and Gram-negative kareem in the urine, we will upgrade to meropenem pending resistant organisms and 1 g every 12 adjusted for the renal failure, and we may have to readjust that based on improvement of the renal function. We will make further recommendations upon the availability of the Gram-negative kareem identification, both in the blood and the urine on meropenem. Review of microbiology from previous, two years ago in 03/2016, revealed the pansensitive Klebsiella, and we will follow closely with you. Faustino Duggan MD
[2018-07-25 07:10] LABS: BASO # 0.01 K/mm3 (0.0-2.0); BASO % 0.1 % (0.0-3.0); EOS # 0.1 (0.0-0.7); EOS % 1.6 % (1.5-5.0); GRAN # 5.01 (1.4-6.5); GRAN % 72.1 % (50.0-68.0); HEMOGLOBIN 12.3 g/dL (12.0-16.0); LYMPH % 13.8 % (22.0-35.0); MEAN CELL VOLUME 85.6 fl (80.0-105.0); MEAN CORPUSCULAR HEMOGLOBIN 28.6 pg (25.0-35.0); MEAN CORPUSCULAR HGB CONC 33.4 g/dl (31.0-37.0); MEAN PLATELET VOLUME 9.2 fl (7.0-11.0); MONO # 0.9 (0.1-0.6); MONO % 12.4 % (1.0-6.0); RBC 4.3 10^6/uL (3.5-6.1); RED CELL DISTRIBUTION WIDTH 13.6 % (11.5-14.5)
[2018-07-25 07:32] LABS: ALB/GLOB RATIO 0.9 (1.1-1.8); ALBUMIN 3.1 g/dL (3.0-4.8); CALCIUM 9.3 mg/dL (8.4-10.5)
[2018-07-25] MEDS: Insulin Reg-LOW-Coverage SC SCH ×4 (08:00→21:31)
[2018-07-25] MEDS ORDERED: Potassium Chloride 20 mEq ER Tab PO ONE (10:21)
[2018-07-25] MEDS: Meropenem IV 1 gm in NS 1 GM/50 ML BAG IVPB SCH ×2 (11:30→21:31)
[2018-07-25] MEDS: Enoxaparin 30 mg Syringe SC SCH (11:30)
--- NOTE | 2018-07-25 12:06 | PN ---
DATE: 07/25/2018 POSTOPERATIVE PROGRESS NOTE SUBJECTIVE: The patient is status post cystoscopy with stent placement. She has had persistent nausea and vomiting. The patient's blood cultures did come back positive for gram-negative rods. Her urine culture also growing E. coli. She has remained afebrile with a WBC count of 7 today. IMPRESSION AND PLAN: The patient with urosepsis, although she has not had a fever or an elevated WBC count. Her blood cultures and urine culture are positive for gram-negative rods. Plan is to maintain the indwelling ureteral stent that I have placed. The patient should continue antibiotics as per Infectious Disease recommendation. When the patient has clinically improved, she can be discharged home on oral antibiotics. Possibly may need home IV antibiotics depending on ID recommendation. The patient will need to follow up in my office and we will need to plan either shockwave lithotripsy or possible ureteroscopic stone removal and then we will be able to remove her stent once the obstructing stone is removed. I will continue to follow the patient with you. Evangelista Mcallister MD
--- NOTE | 2018-07-25 13:15 | PN ---
DATE: 07/24/2018 SUBJECTIVE: The patient sitting in a chair, is comfortable, no distress, no vomiting and nausea is much better and she had a stent placed already by Dr. Mcallister. She has no other complaints. She feels better and no respiratory distress. PHYSICAL EXAMINATION VITAL SIGNS: Her vital signs is as follows; temperature 98.4, heart rate 80, blood pressure 125/78 and respirations 20. HEENT: Head and neck examination is normal. No JVD. No thyromegaly. CHEST: Clear bilateral. CARDIAC: First sounds and second sounds normal. No minimal, rub or gallop. ABDOMEN: Obese and nontender. There is right renal angle tenderness. EXTREMITIES: No edema. NEUROLOGIC: Nonfocal. LABORATORY STUDY: On 07/24/2018; white count 7.5, hemoglobin 12.7, hematocrit 37.8 and platelets 159. Her chemistry shows sodium 137, potassium 4, chloride 105, bicarb 24, BUN 27 and creatinine 1.6. Comprehensive liver function test, magnesium and calcium is normal. Creatinine level is better. Urine shows lot of white cells and urine and blood culture shows gram-negative. Currently, she is on IV Rocephin. IMPRESSION AND PLAN: 1. Acute complicated pyelonephritis with hydronephrosis status post stent placement with good results. 2. Gram-negative bacteremia and the patient on IV Rocephin. Infectious disease consult Dr. Duggan spoke with him. We will continue current therapy. We will followup on duration of antibiotics, probably a couple of weeks. 3. Diabetes. She is on insulin sliding scale, we will hold off her metformin. 4. Renal insufficiency, acute renal failure, probably a combination of dehydrations. Will get Dr. Samuel and Dr. Royal renal consult. Continue on IV fluid. Repeat labs in the morning. 5. Depression. Continue Paxil. The patient otherwise seems stable. We are also going to put deep venous thrombosis prophylaxis medications and gastrointestinal prophylaxis. Continue current therapy. Matthias Romo MD
--- NOTE | 2018-07-25 14:03 | RAD ---
Date of service: 07/23/2018 PROCEDURE: Fluoroscopy up to 1 hr HISTORY: STENT INSERTION (RIGHT) COMPARISON: TECHNIQUE: 62.6 sec of fluoro time. Cumulative dose 23.94 mGy. Eleven images submitted FINDINGS: A stone is seen at the right UVJ. There is placement of a ureteral stent. IMPRESSION: As above
--- NOTE | 2018-07-25 15:29 | CP.PCM.CON ---
History of Present Illness - History of Present Illness History of Present Illness: Nephrology Consultation Note: Assessment: critical E Coli UTI with sepsis with Rt stone/hydronephrosis Acute Kidney Injury (N17.9) likely due to sepsis, ATN and some contribution by Rt stone/hydronephrosis: improving Diabetic chronic Kidney Disease (E11.22) Chronic Kidney Disease (N18.3) Stage 3 with ? mg proteinuria (R80.9) likely due to DM/HTN/obesity recurrent kidney stones morbid obesity respi acidosis Plan No acute need for renal replacement therapy at this time. Hypertension control with meds as ordered. Maintain hemodynamics stable. Avoid hypotension. Patient not on ACEI/ARB due to recent BREE Monitor Input/Output, daily weights and renal function with basic metabolic panel continue with IVF supplement lytes as needed urology and ID recs appreciated will need outpt work up for recurrent kidney stones. Dose meds/antibiotics for reduced GFR. Avoid fleets enema/magnesium based laxatives. Avoid nephrotoxins/NSAIDs/ iodinated contrast (unless needed emergently) Glycemic control Further work up/management as per primary team Thanks for allowing me to participate in care of your patient. Will follow patient with you. Please call if any Qs. had d/w team Dr Lele Guerin Office: [phone] Chief Complaint; fatigue Reason for consult: Acute Kidney Injury HPI: Pt is a 68 F with hx of diabetes Mellitus ( years), kidney stones, morbid obesity presented with complaints of fever and not feeling well, found to have urosepsis with Rt hydronephrosis with 11 mm stone s/p ureteric stone seen for BREE. pt feels tired. denies any other complaints. no CP/SOB/nausea/vomitting. pt not aware about kidney disease in past. her baseline cr 1-1.3 suggestive of baseline CKD 3 Denies OTC/herbal meds or NSAIDs No recent iodinated contrast exposure. No obvious episodes of low BP. ROS: Cardiovascular: No chest pain. Pulmonary: No shortness of breath Gastrointestinal: denies abdominal pain No nausea. No vomiting. Genitourinary: No pain while urinating. Denies blood in urine. says making lot of urine now All other negative except as mentioned in HPI Physical Examination: General Appearance: Comfortable, in no acute respiratory distress, co-operative . morbid obesity Vitals reviewed and noted as below Head; Atraumatic, normocephalic ENT: no ulcers no thrush. Tongue is midline. Oropharynx: no rash or ulcers. EYES: Pupils are equal, round and reactive to light accommodation. Eye muscles and extraocular movement intact. Sclera is anicteric. Neck; supple no lymphadenopathy, no thyromegaly or bruit Lungs: Normal respiratory rate/effort. Breath sounds bilateral equal and clear Heart: Normal rate. s1s2 normal. No rub or gallop. Extremities: no edema. No varicose veins Neurological: Patient is alert, awake and oriented to person, place and time. No focal deficit. Strength bilateral appropriate and equal Skin: Warm and dry. Normal turgor. No rash. Palpitation: Normal elasticity for age Abdomen: Abdomen is soft. Bowel sounds +. There is no abdominal tenderness, no guarding/rigidity no organomegaly Psych: normal insight and normal affect/mood MSK: no joint tenderness or swelling. Digits and nails normal, no deformity : kidney or bladder not palpable Labs/imaging reviewed. Past medical history, past surgical history, family history, social history, allergy reviewed and noted as below Family hx: no hx of CKD. Rest non-contributory work up: imaging: rt side 11 mm stone with hydro pH: 7.27/pCo2: 56 urine/blood cx: E. Coli Past Patient History - Infectious Disease Hx of Infectious Diseases: None - Past Social History Smoking Status: Unknown If Ever Smoked - CARDIAC Hx Hypertension: Yes - PULMONARY Hx Respiratory Disorders: No - NEUROLOGICAL Hx Neurological Disorder: No Hx Migraine: No - HEENT Hx HEENT Problems: Yes Hx Cataracts: Yes - RENAL Hx Chronic Kidney Disease: Yes Hx Pyelonephritis: Yes Other/Comment: Kidney stones - ENDOCRINE/METABOLIC Hx Diabetes Mellitus Type 2: Yes - HEMATOLOGICAL/ONCOLOGICAL Hx Blood Disorders: No - INTEGUMENTARY Hx Dermatological Problems: No - MUSCULOSKELETAL/RHEUMATOLOGICAL Hx Arthritis: Yes - GASTROINTESTINAL Hx Gastrointestinal Disorders: Yes Hx Gastroesophageal Reflux: Yes - GENITOURINARY/GYNECOLOGICAL Hx Genitourinary Disorders: Yes Hx Hematuria: Yes Hx Urinary Tract Infection: Yes - PSYCHIATRIC Hx Substance Use: No - SURGICAL HISTORY Other/Comment: Broken ear drum Meds Allergies/Adverse Reactions: Allergies Allergy/AdvReac Type Severity Reaction Status Date / Time No Known Allergies Allergy Verified 07/23/18 12:47 - Medications Medications: Current Medications Enoxaparin Sodium (Lovenox) 30 mg SC DAILY [facility]; Protocol Last Admin: 07/25/18 11:30 Dose: 30 mg Sodium Chloride (Sodium Chloride 0.9%) 1,000 mls @ 100 mls/hr IV .Q10H [facility] Last Admin: 07/24/18 17:35 Dose: 100 mls/hr Meropenem (Merrem Iv 1 Gm Premix) 1 gm in 50 mls @ 100 mls/hr IVPB Q12 [facility]; Protocol Stop: 07/31/18 15:31 Last Admin: 07/24/18 21:10 Dose: 100 mls/hr Insulin Human Regular (Humulin R Low) 0 units SC ACHS [facility]; Protocol Last Admin: 07/25/18 08:00 Dose: Not Given Ketorolac Tromethamine (Toradol) 30 mg IVP ONCE PRN PRN Reason: Pain, moderate (4-7) Morphine Sulfate (Morphine) 1 mg IVP Q6 PRN PRN Reason: Pain, severe (8-10) Ondansetron HCl (Zofran Inj) 4 mg IVP Q4H PRN PRN Reason: Nausea/Vomiting Ondansetron HCl (Zofran Inj) 4 mg IVP ONCE PRN PRN Reason: Nausea/Vomiting Pantoprazole Sodium (Protonix Inj) 40 mg IVP DAILY [facility] Last Admin: 07/25/18 11:31 Dose: 40 mg Paroxetine HCl (Paxil) 20 mg PO BID [facility] Last Admin: 07/25/18 11:29 Dose: 20 mg Tamsulosin HCl (Flomax) 0.4 mg PO DAILY [facility] Last Admin: 07/25/18 11:29 Dose: 0.4 mg Results - Vital Signs Recent Vital Signs: Last Vital Signs Temp 98.3 F 07/25/18 12:00 Pulse 79 07/25/18 12:00 Resp 18 07/25/18 12:00 BP 141/85 07/25/18 12:00 Pulse Ox 94 L 07/25/18 00:00 - Labs Result Diagrams: 07/25/18 06:30 07/25/18 06:30 Labs: Laboratory Results - last 24 hr 07/24/18 07/24/18 07/24/18 09:15 12:16 16:17 WBC RBC Hgb Hct MCV MCH MCHC RDW Plt Count MPV Gran % Lymph % (Auto) [place] % (Auto) Eos % (Auto) Baso % (Auto) Gran # Lymph # (Auto) [place] # (Auto) Eos # (Auto) Baso # (Auto) Sodium Potassium Chloride Carbon Dioxide Anion Gap BUN Creatinine Est GFR ( Amer) Est GFR (Non-Af Amer) POC Glucose (mg/dL) 94 116 H 88 Random Glucose Calcium Phosphorus Magnesium Total Bilirubin AST ALT Alkaline Phosphatase Total Protein Albumin Globulin Albumin/Globulin Ratio 07/24/18 07/25/18 07/25/18 21:37 06:30 06:30 WBC 7.0 RBC 4.30 Hgb 12.3 Hct 36.8 MCV 85.6 MCH 28.6 MCHC 33.4 RDW 13.6 Plt Count 173 MPV 9.2 Gran % 72.1 H Lymph % (Auto) 13.8 L [place] % (Auto) 12.4 H Eos % (Auto) 1.6 Baso % (Auto) 0.1 Gran # 5.01 Lymph # (Auto) 1.0 L [place] # (Auto) 0.9 H Eos # (Auto) 0.1 Baso # (Auto) 0.01 Sodium 138 Potassium 3.4 L Chloride 104 Carbon Dioxide 25 Anion Gap 12 BUN 30 H Creatinine 1.5 H Est GFR ( Amer) 42 Est GFR (Non-Af Amer) 35 POC Glucose (mg/dL) 230 H Random Glucose 121 H Calcium 9.3 Phosphorus 3.7 Magnesium 1.8 Total Bilirubin 0.7 AST 29 ALT 24 Alkaline Phosphatase 139 H Total Protein 6.5 Albumin 3.1 Globulin 3.4 Albumin/Globulin Ratio 0.9 L 07/25/18 07:38 WBC RBC Hgb Hct MCV MCH MCHC RDW Plt Count MPV Gran % Lymph % (Auto) [place] % (Auto) Eos % (Auto) Baso % (Auto) Gran # Lymph # (Auto) [place] # (Auto) Eos # (Auto) Baso # (Auto) Sodium Potassium Chloride Carbon Dioxide Anion Gap BUN Creatinine Est GFR ( Amer) Est GFR (Non-Af Amer) POC Glucose (mg/dL) 127 H Random Glucose Calcium Phosphorus Magnesium Total Bilirubin AST ALT Alkaline Phosphatase Total Protein Albumin Globulin Albumin/Globulin Ratio
--- NOTE | 2018-07-25 16:38 | CP.PCM.PN ---
Subjective - Date & Time of Evaluation Date of Evaluation: 07/25/18 Time of Evaluation: 08:35 - Subjective Subjective: Comfortable in bed, no flank pain, no fevers, no nausea or diarrhea, feeling better. Objective - Vital Signs/Intake and Output Vital Signs (last 24 hours): Temp Pulse Resp BP Pulse Ox 98.3 F 79 18 141/85 94 L 07/25/18 12:00 07/25/18 12:00 07/25/18 12:00 07/25/18 12:00 07/25/18 00:00 Intake and Output: 07/25/18 07/25/18 06:59 18:59 Intake Total 3360 Balance 3360 - Medications Medications: Current Medications Enoxaparin Sodium (Lovenox) 30 mg SC DAILY [facility]; Protocol Last Admin: 07/25/18 11:30 Dose: 30 mg Sodium Chloride (Sodium Chloride 0.9%) 1,000 mls @ 100 mls/hr IV .Q10H [facility] Last Admin: 07/24/18 17:35 Dose: 100 mls/hr Meropenem (Merrem Iv 1 Gm Premix) 1 gm in 50 mls @ 100 mls/hr IVPB Q12 [facility]; Protocol Stop: 07/31/18 15:31 Last Admin: 07/24/18 21:10 Dose: 100 mls/hr Insulin Human Regular (Humulin R Low) 0 units SC ACHS [facility]; Protocol Last Admin: 07/25/18 08:00 Dose: Not Given Ketorolac Tromethamine (Toradol) 30 mg IVP ONCE PRN PRN Reason: Pain, moderate (4-7) Morphine Sulfate (Morphine) 1 mg IVP Q6 PRN PRN Reason: Pain, severe (8-10) Ondansetron HCl (Zofran Inj) 4 mg IVP Q4H PRN PRN Reason: Nausea/Vomiting Ondansetron HCl (Zofran Inj) 4 mg IVP ONCE PRN PRN Reason: Nausea/Vomiting Pantoprazole Sodium (Protonix Inj) 40 mg IVP DAILY [facility] Last Admin: 07/25/18 11:31 Dose: 40 mg Paroxetine HCl (Paxil) 20 mg PO BID [facility] Last Admin: 07/25/18 11:29 Dose: 20 mg Tamsulosin HCl (Flomax) 0.4 mg PO DAILY [facility] Last Admin: 07/25/18 11:29 Dose: 0.4 mg - Labs Labs: 07/25/18 06:30 07/25/18 06:30 PT 12.9 SECONDS (9.4-12.5) H 07/23/18 13:05 INR 1.12 07/23/18 13:05 APTT 28.5 Seconds (25.1-36.5) 07/23/18 13:05 - Constitutional Appears: No Acute Distress, Chronically Ill - Head Exam Head Exam: NORMAL INSPECTION - ENT Exam ENT Exam: Mucous Membranes Moist - Neck Exam Neck Exam: absent: Meningismus - Respiratory Exam Respiratory Exam: Decreased Breath Sounds - Cardiovascular Exam Cardiovascular Exam: +S1, +S2 - GI/Abdominal Exam GI & Abdominal Exam: Soft. absent: Tenderness Assessment and Plan - Assessment and Plan (Free Text) Plan: Assessment Sepsis due to gram negative bacilli bacteremia due to right sided pyelonephritis associated with nephrolithiasis S/P cystoscopy and right ureteral stent placement POD #2 Plan continue Merrem pending identification and sensitivities of the gram negative bacilli in the blood and urine will continue to monitor clinically
[2018-07-25] MEDS: Sodium Chloride 0.9% 1,000 ML IV SCH (21:31)
[2018-07-26 00:04] VITALS: O2SAT 97
[2018-07-26] MEDS ORDERED: Pantoprazole 40 mg EC Tab PO SCH (06:00)
[2018-07-26 06:51] LABS: ALB/GLOB RATIO 0.9 (1.1-1.8); ALBUMIN 3.1 g/dL (3.0-4.8); CALCIUM 9.5 mg/dL (8.4-10.5)
[2018-07-26 07:30] LABS: BASO # 0.02 K/mm3 (0.0-2.0); BASO % 0.3 % (0.0-3.0); EOS # 0.1 (0.0-0.7); EOS % 2.4 % (1.5-5.0); GRAN # 3.67 (1.4-6.5); LYMPH # 1.4 (1.2-3.4); MEAN CELL VOLUME 84.7 fl (80.0-105.0); MEAN CORPUSCULAR HEMOGLOBIN 27.8 pg (25.0-35.0); MEAN CORPUSCULAR HGB CONC 32.9 g/dl (31.0-37.0); MEAN PLATELET VOLUME 8.9 fl (7.0-11.0); MONO # 0.6 (0.1-0.6); MONO % 10.3 % (1.0-6.0); RBC 4.31 10^6/uL (3.5-6.1); RED CELL DISTRIBUTION WIDTH 13.5 % (11.5-14.5); WHITE BLOOD COUNT 5.8 10^3/uL (4.5-11.0)
[2018-07-26] MEDS: Insulin Reg-LOW-Coverage SC SCH ×3 (08:12→17:00)
[2018-07-26] MEDS ORDERED: ceFAZolin 1 gm in NS 1 GM/100 ML BAG IVPB SCH (08:45)
[2018-07-26] MEDS: Sodium Chloride 0.9% 1,000 ML IV SCH (09:15)
[2018-07-26] MEDS: Enoxaparin 30 mg Syringe SC SCH (09:27)
[2018-07-26] MEDS ORDERED: Potassium Chloride 20 mEq ER Tab PO ONE (10:01)
[2018-07-26] MEDS ORDERED: levoFLOXacin 750 MG TAB PO SCH (10:30)
--- NOTE | 2018-07-26 11:24 | PN ---
DATE: 07/25/2018 SUBJECTIVE: The patient is sitting, is comfortable. No distress. She ate well. No vomiting. She moves her bowels. Her pain is less. Currently on IV antibiotic meropenem for positive bacteremia. PHYSICAL EXAMINATION: VITAL SIGNS: Temperature 98.6, heart rate 76, blood pressure 134/74 and respirations 20. HEENT: Head and neck examination is normal. NECK: No JVD. No thyromegaly. CHEST: Clear. Good air entry. CARDIAC: First sound and second sound normal. No murmur, rub, or gallop. ABDOMEN: Obese, soft and nontender. Renal angle, mild tenderness on the right side. EXTREMITIES: No edema. NEUROLOGIC: Normal. LABORATORY DATA: Her laboratory study shows sodium 138, potassium 3.4, chloride 104, bicarb 25, BUN 30, creatinine 1.5 and blood sugar is 121. Liver function test; AST is normal, ALT is normal, and alk phos 139. CBC shows white count 7, hemoglobin 12.3, hematocrit 36.8 and platelets 173,000. IMPRESSION AND PLAN: 1. Acute pyelonephritis with mild hydronephrosis due to obstruction in the right renal pelvic and urethral area, status post stent placement, doing better. Continue current management, IV antibiotic meropenem. 2. Gram-negative bacteremia. Continue IV antibiotics. 3. Diabetes type 2, mild, controlled with insulin coverage. 4. Acute renal failure. We will continue IV hydration. Dr. Samuel will see the patient for renal failure and will follow clinically. 5. Generalized weakness. She is feeling better. She may benefit from physical therapy plus IV antibiotic at TCU level. We will continue current therapy. 6. For her depression, continue Paxil and we will followup clinically. 7. Continue current therapy. Continue gastrointestinal and deep venous thrombosis prophylaxis. Matthias Romo MD
--- NOTE | 2018-07-26 12:26 | CP.PCM.PN ---
Subjective - Date & Time of Evaluation Date of Evaluation: 07/26/18 Time of Evaluation: 09:30 - Subjective Subjective: No nausea, no fevers, no abdominal pain, no dysuria or hematuria, no flank pain. Objective - Vital Signs/Intake and Output Vital Signs (last 24 hours): Temp Pulse Resp BP Pulse Ox 98.3 F 79 18 141/85 94 L 07/25/18 12:00 07/25/18 12:00 07/25/18 12:00 07/25/18 12:00 07/25/18 00:00 Intake and Output: 07/25/18 07/25/18 06:59 18:59 Intake Total 3360 Balance 3360 - Medications Medications: Current Medications Enoxaparin Sodium (Lovenox) 30 mg SC DAILY [facility]; Protocol Last Admin: 07/25/18 11:30 Dose: 30 mg Sodium Chloride (Sodium Chloride 0.9%) 1,000 mls @ 100 mls/hr IV .Q10H [facility] Last Admin: 07/24/18 17:35 Dose: 100 mls/hr Meropenem (Merrem Iv 1 Gm Premix) 1 gm in 50 mls @ 100 mls/hr IVPB Q12 [facility]; Protocol Stop: 07/31/18 15:31 Last Admin: 07/24/18 21:10 Dose: 100 mls/hr Insulin Human Regular (Humulin R Low) 0 units SC ACHS [facility]; Protocol Last Admin: 07/25/18 08:00 Dose: Not Given Ketorolac Tromethamine (Toradol) 30 mg IVP ONCE PRN PRN Reason: Pain, moderate (4-7) Morphine Sulfate (Morphine) 1 mg IVP Q6 PRN PRN Reason: Pain, severe (8-10) Ondansetron HCl (Zofran Inj) 4 mg IVP Q4H PRN PRN Reason: Nausea/Vomiting Ondansetron HCl (Zofran Inj) 4 mg IVP ONCE PRN PRN Reason: Nausea/Vomiting Pantoprazole Sodium (Protonix Inj) 40 mg IVP DAILY [facility] Last Admin: 07/25/18 11:31 Dose: 40 mg Paroxetine HCl (Paxil) 20 mg PO BID [facility] Last Admin: 07/25/18 11:29 Dose: 20 mg Tamsulosin HCl (Flomax) 0.4 mg PO DAILY [facility] Last Admin: 07/25/18 11:29 Dose: 0.4 mg - Labs Labs: 07/25/18 06:30 07/25/18 06:30 PT 12.9 SECONDS (9.4-12.5) H 07/23/18 13:05 INR 1.12 07/23/18 13:05 APTT 28.5 Seconds (25.1-36.5) 07/23/18 13:05 - Constitutional Appears: Chronically Ill - Head Exam Head Exam: NORMAL INSPECTION - Respiratory Exam Respiratory Exam: Decreased Breath Sounds - Cardiovascular Exam Cardiovascular Exam: +S1, +S2 - GI/Abdominal Exam GI & Abdominal Exam: Soft. absent: Tenderness Assessment and Plan - Assessment and Plan (Free Text) Plan: Assessment Sepsis due to E. coli bacteremia due to right sided pyelonephritis associated with nephrolithiasis S/P cystoscopy and right ureteral stent placement POD #3 Plan on Merrem - can switch to renally-adjusted PO Levaquin to complete the total 10- 14 days of therapy with outpatient follow up with PMD and Urology
--- NOTE | 2018-07-26 12:28 | CP.PCM.PN ---
Subjective - Date & Time of Evaluation Date of Evaluation: 07/26/18 Time of Evaluation: 12:27 - Subjective Subjective: Nephrology Consultation Note: Assessment: stable E Coli UTI with sepsis with Rt stone/hydronephrosis Acute Kidney Injury (N17.9) likely due to sepsis, ATN and some contribution by Rt stone/hydronephrosis: improving Diabetic chronic Kidney Disease (E11.22) Chronic Kidney Disease (N18.3) Stage 3 with ? mg proteinuria (R80.9) likely due to DM/HTN/obesity recurrent kidney stones morbid obesity respi acidosis Plan No acute need for renal replacement therapy at this time. Hypertension control with meds as ordered. Maintain hemodynamics stable. Avoid hypotension. Patient not on ACEI/ARB due to recent BREE Monitor Input/Output, daily weights and renal function with basic metabolic panel discontinue with IVF supplement lytes as needed urology and ID recs appreciated will need outpt work up for recurrent kidney stones. Dose meds/antibiotics for improved GFR. Avoid fleets enema/magnesium based laxatives. Avoid nephrotoxins/NSAIDs/ iodinated contrast (unless needed emergently) Glycemic control Further work up/management as per primary team Thanks for allowing me to participate in care of your patient. Will follow patie nt with you. Please call if any Qs. had d/w team Dr Lele Guerin Office: [phone] Chief Complaint; fatigue Reason for consult: Acute Kidney Injury HPI: Pt is a 68 F with hx of diabetes Mellitus ( years), kidney stones, morbid obesity presented with complaints of fever and not feeling well, found to have urosepsis with Rt hydronephrosis with 11 mm stone s/p ureteric stone seen for BREE. pt feels tired. denies any other complaints. no CP/SOB/nausea/vomitting. pt not aware about kidney disease in past. her baseline cr 1-1.3 suggestive of baseline CKD 3 Denies OTC/herbal meds or NSAIDs No recent iodinated contrast exposure. No obvious episodes of low BP. ROS: Cardiovascular: No chest pain. Pulmonary: No shortness of breath Gastrointestinal: denies abdominal pain No nausea. No vomiting. Genitourinary: No pain while urinating. Denies blood in urine. says making lot of urine now All other negative except as mentioned in HPI Physical Examination: General Appearance: Comfortable, in no acute respiratory distress, co-operative . morbid obesity Vitals reviewed and noted as below Head; Atraumatic, normocephalic ENT: no ulcers no thrush. Tongue is midline. Oropharynx: no rash or ulcers. EYES: Pupils are equal, round and reactive to light accommodation. Eye muscles and extraocular movement intact. Sclera is anicteric. Neck; supple no lymphadenopathy, no thyromegaly or bruit Lungs: Normal respiratory rate/effort. Breath sounds bilateral equal and clear Heart: Normal rate. s1s2 normal. No rub or gallop. Extremities: no edema. No varicose veins Neurological: Patient is alert, awake and oriented to person, place and time. No focal deficit. Strength bilateral appropriate and equal Skin: Warm and dry. Normal turgor. No rash. Palpitation: Normal elasticity for age Abdomen: Abdomen is soft. Bowel sounds +. There is no abdominal tenderness, no guarding/rigidity no organomegaly Psych: normal insight and normal affect/mood MSK: no joint tenderness or swelling. Digits and nails normal, no deformity : kidney or bladder not palpable Labs/imaging reviewed. Past medical history, past surgical history, family history, social history, allergy reviewed and noted as below Family hx: no hx of CKD. Rest non-contributory work up: imaging: rt side 11 mm stone with hydro pH: 7.27/pCo2: 56 urine/blood cx: E. Coli Objective - Vital Signs/Intake and Output Vital Signs (last 24 hours): Temp Pulse Resp BP Pulse Ox 97.8 F 72 20 148/87 97 07/26/18 06:00 07/26/18 06:00 07/26/18 06:00 07/26/18 06:00 07/26/18 06:00 Intake and Output: 07/26/18 07/26/18 06:59 18:59 Intake Total 2234 Output Total 6 Balance 2228 - Medications Medications: Current Medications Enoxaparin Sodium (Lovenox) 30 mg SC DAILY [facility]; Protocol Last Admin: 07/26/18 09:27 Dose: 30 mg Insulin Human Regular (Humulin R Low) 0 units SC ACHS [facility]; Protocol Last Admin: 07/26/18 08:12 Dose: Not Given Ketorolac Tromethamine (Toradol) 30 mg IVP ONCE PRN PRN Reason: Pain, moderate (4-7) Levofloxacin (Levaquin) 750 mg PO Q48H [facility]; Protocol Stop: 08/09/18 05:00 Morphine Sulfate (Morphine) 1 mg IVP Q6 PRN PRN Reason: Pain, severe (8-10) Ondansetron HCl (Zofran Inj) 4 mg IVP Q4H PRN PRN Reason: Nausea/Vomiting Pantoprazole Sodium (Protonix Ec Tab) 40 mg PO 0600 [facility] Last Admin: 07/26/18 05:23 Dose: 40 mg Paroxetine HCl (Paxil) 20 mg PO BID [facility] Last Admin: 07/26/18 09:27 Dose: 20 mg Tamsulosin HCl (Flomax) 0.4 mg PO DAILY [facility] Last Admin: 07/26/18 09:27 Dose: 0.4 mg - Labs Labs: 07/26/18 06:00 07/26/18 06:00 PT 12.9 SECONDS (9.4-12.5) H 07/23/18 13:05 INR 1.12 07/23/18 13:05 APTT 28.5 Seconds (25.1-36.5) 07/23/18 13:05
[2018-07-26 17:41] VITALS: BP 135/82; PULSE 63; RESP 20; TEMP 98.3
== END 2018-07-26 19:34 | DRG 853 ==
LOC: ED 11:40 → ERH 14:52 → 2RNO 19:16
PROVIDERS: ADMIT Internal Medicine; ATTEND Internal Medicine
PROC: BT1D1ZZ Fluoroscopy of Right Kidney, Ureter and Bladder using Low Osmolar Contrast (ICD-10-PCS; 2018-07-23)
PROC: 0T768DZ Dilation of Right Ureter with Intraluminal Device, Via Natural or Artificial Opening Endoscopic (ICD-10-PCS; principal; 2018-07-23 16:33)
DX: A41.51 Sepsis due to Escherichia coli [E. coli] (principal); N17.0 Acute kidney failure with tubular necrosis; N13.6 Pyonephrosis; N20.1 Calculus of ureter; N10 Acute pyelonephritis; E87.2 Acidosis; Z68.41 Body mass index [BMI] 40.0-44.9, adult; I12.9 Hypertensive chronic kidney disease with stage 1 through stage 4 chronic kidney disease, or unspecified chronic kidney disease; E11.22 Type 2 diabetes mellitus with diabetic chronic kidney disease; N18.3 Chronic kidney disease, stage 3 (moderate); I25.10 Atherosclerotic heart disease of native coronary artery without angina pectoris; F32.9 Major depressive disorder, single episode, unspecified; K21.9 Gastro-esophageal reflux disease without esophagitis; E66.01 Morbid (severe) obesity due to excess calories; K80.20 Calculus of gallbladder without cholecystitis without obstruction; Z79.84 Long term (current) use of oral hypoglycemic drugs

== ENCOUNTER 2018-07-26 19:38 | Inpatient (IN) | payer OTHER ==
[2018-07-26 19:50] VITALS: BMI 44.6
[2018-07-26] MEDS ORDERED: Morphine 2 mg/ml ISec IVP PRN (20:29)
[2018-07-26] MEDS: Insulin Reg-LOW-Coverage SC SCH (22:39)
[2018-07-27] MEDS ORDERED: Morphine 2 mg/ml ISec IVP SCH
[2018-07-27] MEDS: Enoxaparin 30 mg Syringe SC SCH (05:14)
[2018-07-27] MEDS: Pantoprazole 20 mg EC Tab PO SCH (05:15)
[2018-07-27] MEDS: Insulin Reg-LOW-Coverage SC SCH ×3 (06:32→23:00)
[2018-07-27 07:00] LABS: BASO # 0.01 K/mm3 (0.0-2.0); BASO % 0.2 % (0.0-3.0); EOS # 0.3 (0.0-0.7); EOS % 4.1 % (1.5-5.0); GRAN # 4.38 (1.4-6.5); GRAN % 68.9 % (50.0-68.0); HEMOGLOBIN 11.6 g/dL (12.0-16.0); LYMPH # 1.2 (1.2-3.4); LYMPH % 18.6 % (22.0-35.0); MEAN CELL VOLUME 84.9 fl (80.0-105.0); MEAN CORPUSCULAR HEMOGLOBIN 27.8 pg (25.0-35.0); MEAN CORPUSCULAR HGB CONC 32.8 g/dl (31.0-37.0); MEAN PLATELET VOLUME 8.9 fl (7.0-11.0); MONO # 0.5 (0.1-0.6); MONO % 8.2 % (1.0-6.0); RBC 4.17 10^6/uL (3.5-6.1); RED CELL DISTRIBUTION WIDTH 13.4 % (11.5-14.5); WHITE BLOOD COUNT 6.4 10^3/uL (4.5-11.0)
[2018-07-27 07:33] LABS: ALB/GLOB RATIO 0.9 (1.1-1.8); ALBUMIN 2.9 g/dL (3.0-4.8); CALCIUM 9.4 mg/dL (8.4-10.5)
[2018-07-27] MEDS: Magnesium Oxide 400 mg Tab UD PO SCH (12:45)
--- NOTE | 2018-07-27 14:08 | CP.PCM.CON ---
History of Present Illness - History of Present Illness History of Present Illness: Nephrology Consultation Note: Assessment: stable E Coli UTI with sepsis with Rt stone/hydronephrosis Acute Kidney Injury (N17.9) likely due to sepsis, ATN and some contribution by Rt stone/hydronephrosis: resolved Diabetic chronic Kidney Disease (E11.22) Chronic Kidney Disease (N18.3) Stage 3 with ? mg proteinuria (R80.9) likely due to DM/HTN/obesity recurrent kidney stones morbid obesity respi acidosis Plan No acute need for renal replacement therapy at this time. Hypertension control with meds as ordered. Maintain hemodynamics stable. Avoid hypotension. Patient not on ACEI/ARB due to recent BREE Monitor Input/Output, daily weights supplement lytes as needed urology and ID recs appreciated from previous admission to medical service. will need outpt work up for recurrent kidney stones. Dose meds/antibiotics for improved GFR. Avoid fleets enema/magnesium based laxatives. Avoid nephrotoxins/NSAIDs/ iodinated contrast (unless needed emergently) Glycemic control Further work up/management as per primary team Thanks for allowing me to participate in care of your patient. Will follow patient with you. Please call if any Qs. had d/w team Dr Lele Guerin Office: [phone] Chief Complaint; too much urine Reason for consult: Acute Kidney Injury HPI: Pt is a 68 F with hx of diabetes Mellitus ( years), kidney stones, morbid obesity initially presented with complaints of fever and not feeling well, found to have urosepsis with Rt hydronephrosis with 11 mm stone s/p ureteric stone seen for BREE. denies any other complaints. no CP/SOB/nausea/vomitting. pt not aware about kidney disease in past. her baseline cr 1-1.3 suggestive of baseline CKD 3.d/c to [facility] and seen in consult today Denies OTC/herbal meds or NSAIDs No recent iodinated contrast exposure. No obvious episodes of low BP. ROS: Cardiovascular: No chest pain. Pulmonary: No shortness of breath Gastrointestinal: denies abdominal pain No nausea. No vomiting. Genitourinary: No pain while urinating. Denies blood in urine. says making lot of urine now All other negative except as mentioned in HPI Physical Examination: General Appearance: Comfortable, in no acute respiratory distress, co-operative . morbid obesity Vitals reviewed and noted as below Head; Atraumatic, normocephalic ENT: no ulcers no thrush. Tongue is midline. Oropharynx: no rash or ulcers. EYES: Pupils are equal, round and reactive to light accommodation. Eye muscles and extraocular movement intact. Sclera is anicteric. Neck; supple no lymphadenopathy, no thyromegaly or bruit Lungs: Normal respiratory rate/effort. Breath sounds bilateral equal and clear Heart: Normal rate. s1s2 normal. No rub or gallop. Extremities: ankle edema +. No varicose veins Neurological: Patient is alert, awake and oriented to person, place and time. No focal deficit. Strength bilateral appropriate and equal Skin: Warm and dry. Normal turgor. No rash. Palpitation: Normal elasticity for age Abdomen: Abdomen is soft. Bowel sounds +. There is no abdominal tenderness, no guarding/rigidity no organomegaly Psych: normal insight and normal affect/mood MSK: no joint tenderness or swelling. Digits and nails normal, no deformity : kidney or bladder not palpable Labs/imaging reviewed. Past medical history, past surgical history, family history, social history, allergy reviewed and noted as below Family hx: no hx of CKD. Rest non-contributory work up: imaging: rt side 11 mm stone with hydro pH: 7.27/pCo2: 56 urine/blood cx: E. Coli Past Patient History - Infectious Disease Hx of Infectious Diseases: None - Past Social History Smoking Status: Unknown If Ever Smoked - CARDIAC Hx Hypertension: Yes - PULMONARY Hx Respiratory Disorders: No - NEUROLOGICAL Hx Neurological Disorder: No Hx Migraine: No - HEENT Hx HEENT Problems: Yes Hx Cataracts: Yes - RENAL Hx Chronic Kidney Disease: Yes Hx Pyelonephritis: Yes Other/Comment: Kidney stones - ENDOCRINE/METABOLIC Hx Diabetes Mellitus Type 2: Yes - HEMATOLOGICAL/ONCOLOGICAL Hx Blood Disorders: No - INTEGUMENTARY Hx Dermatological Problems: No - MUSCULOSKELETAL/RHEUMATOLOGICAL Hx Arthritis: Yes - GASTROINTESTINAL Hx Gastrointestinal Disorders: Yes Hx Gastroesophageal Reflux: Yes - GENITOURINARY/GYNECOLOGICAL Hx Reproductive Disorders: No - PSYCHIATRIC Hx Substance Use: No - SURGICAL HISTORY Other/Comment: Broken ear drum Meds Allergies/Adverse Reactions: Allergies Allergy/AdvReac Type Severity Reaction Status Date / Time No Known Allergies Allergy Verified 07/23/18 12:47 - Medications Medications: Current Medications Enoxaparin Sodium (Lovenox) 30 mg SC 0600 [facility]; Protocol Last Admin: 07/27/18 05:14 Dose: 30 mg Insulin Human Regular (Humulin R Low) 0 units SC ACHS [facility]; Protocol Last Admin: 07/27/18 06:32 Dose: Not Given Ketorolac Tromethamine (Toradol) 30 mg IVP ONCE PRN PRN Reason: Pain, moderate (4-7) Levofloxacin (Levaquin) 750 mg PO Q48H [facility]; Protocol Stop: 08/09/18 11:00 Magnesium Oxide (Mag-Ox) 400 mg PO BID [facility] Stop: 08/03/18 10:01 Magnesium Oxide (Mag-Ox) 400 mg PO BID [facility] Metformin HCl (Glucophage) 500 mg PO BID [facility] Morphine Sulfate (Morphine) 1 mg IVP Q6 PRN PRN Reason: Pain, severe (8-10) Ondansetron HCl (Zofran Inj) 4 mg IVP Q4H PRN PRN Reason: Nausea/Vomiting Pantoprazole Sodium (Protonix Ec Tab) 20 mg PO 0600 [facility] Last Admin: 07/27/18 05:15 Dose: 20 mg Paroxetine HCl (Paxil) 20 mg PO BID [facility] Last Admin: 07/27/18 10:25 Dose: 20 mg Tamsulosin HCl (Flomax) 0.4 mg PO 1800 [facility] Results - Vital Signs Recent Vital Signs: Last Vital Signs Temp 98 F 07/27/18 06:00 Pulse 79 07/27/18 11:36 Resp 16 07/27/18 06:00 BP 150/80 07/27/18 11:36 Pulse Ox 96 07/27/18 11:36 - Labs Result Diagrams: 07/27/18 05:20 07/27/18 05:20 Labs: Laboratory Results - last 24 hr 07/27/18 07/27/18 07/27/18 04:57 05:20 05:20 WBC 6.4 RBC 4.17 Hgb 11.6 L Hct 35.4 L MCV 84.9 MCH 27.8 MCHC 32.8 RDW 13.4 Plt Count 206 MPV 8.9 Gran % 68.9 H Lymph % (Auto) 18.6 L [place] % (Auto) 8.2 H Eos % (Auto) 4.1 Baso % (Auto) 0.2 Gran # 4.38 Lymph # (Auto) 1.2 [place] # (Auto) 0.5 Eos # (Auto) 0.3 Baso # (Auto) 0.01 Sodium 137 Potassium 3.9 Chloride 106 Carbon Dioxide 25 Anion Gap 10 BUN 20 Creatinine 1.1 Est GFR ( Amer) 60 Est GFR (Non-Af Amer) 49 POC Glucose (mg/dL) 100 Random Glucose 101 Calcium 9.4 Phosphorus 3.5 Magnesium 1.6 L Total Bilirubin 0.5 AST 25 ALT 26 Alkaline Phosphatase 115 Total Protein 6.0 Albumin 2.9 L Globulin 3.1 Albumin/Globulin Ratio 0.9 L 07/27/18 11:31 WBC RBC Hgb Hct MCV MCH MCHC RDW Plt Count MPV Gran % Lymph % (Auto) [place] % (Auto) Eos % (Auto) Baso % (Auto) Gran # Lymph # (Auto) [place] # (Auto) Eos # (Auto) Baso # (Auto) Sodium Potassium Chloride Carbon Dioxide Anion Gap BUN Creatinine Est GFR ( Amer) Est GFR (Non-Af Amer) POC Glucose (mg/dL) 118 H Random Glucose Calcium Phosphorus Magnesium Total Bilirubin AST ALT Alkaline Phosphatase Total Protein Albumin Globulin Albumin/Globulin Ratio
--- NOTE | 2018-07-27 21:28 | HP ---
DATE OF EXAM: 07/27/2018 The patient came in for antibiotic continuation and physical therapy evaluation and treating deconditioning. HISTORY OF PRESENT ILLNESS: The patient has a case of complicated pyelonephritis, treated with IV antibiotics. PAST MEDICAL HISTORY: As above, history of kidney stone, pyelonephritis in the past, and currently she has a complicated pyelonephritis with hydronephrosis status post stent placement and treatment. She does have morbid obesity, osteoarthritis, diabetes type 2, and depression. ALLERGIES: SHE HAS NO KNOWN ALLERGIES. SOCIAL HISTORY: She has no smoking, no drinking, and no drugs. She lives with her apartment, brother lives in another apartment. FAMILY HISTORY: Noncontributory. REVIEW OF SYSTEMS: She always complains of back pain, knee pain, arthritis, and depression. Allergic symptoms in the winter and in the summer. Otherwise, no dysuria, no short of breath, and no other complaints. PHYSICAL EXAMINATION VITAL SIGNS: Temperature 98, heart 79, blood pressure 139/79, respirations 16, saturation 97% on room air. HEENT: Normal. No JVD. No thyromegaly. CHEST: Clear bilaterally. CARDIAC: First sounds and second sounds normal. No murmur, rub, or gallop. ABDOMEN: Obese and nontender. EXTREMITIES: No edema. NEUROLOGIC: Normal. LABORATORY DATA: Shows white count 6.4, hemoglobin 11.6, hematocrit 35.4 and platelet is 206,000. Sodium 137, potassium 3.9, chloride 106, bicarb 25, BUN 20, and creatinine 1.1. Liver function test is normal. Magnesium 1.6. AST, ALT and alk phos are normal. Blood sugar 118. IMPRESSION AND PLAN: 1. Acute complicated pyelonephritis with hydronephrosis status post stent placement, doing better. We will continue p.o. Levaquin 750 every other day similar to an IV, continue that. Monitor the patient's symptoms. 2. Generalized weakness, deconditioning. The patient has gram-negative bacteremia. We will continue p.o. Levaquin. We will physical therapy and we follow up clinically. 3. Depression. Continue Paxil, seems stable now. 4. Diabetes type 2, continue metformin 500 b.i.d. We will put the patient on a sliding scale. 5. Chronic back pain, osteoarthritis, and morbid obesity; continue physical therapy. PLAN: Continue current therapy. We will follow up with the other consultants. Matthias Romo MD
[2018-07-28] MEDS: Pantoprazole 20 mg EC Tab PO SCH (05:19)
[2018-07-28] MEDS: Enoxaparin 30 mg Syringe SC SCH (05:19)
[2018-07-28 06:51] LABS: ALBUMIN 3.2 g/dL (3.0-4.8); CALCIUM 9.8 mg/dL (8.4-10.5)
[2018-07-28 06:52] LABS: BASO # 0.01 K/mm3 (0.0-2.0); BASO % 0.2 % (0.0-3.0); EOS # 0.3 (0.0-0.7); EOS % 3.9 % (1.5-5.0); GRAN # 4.24 (1.4-6.5); GRAN % 65.3 % (50.0-68.0); LYMPH # 1.6 (1.2-3.4); LYMPH % 25.1 % (22.0-35.0); MEAN CELL VOLUME 84.2 fl (80.0-105.0); MEAN CORPUSCULAR HEMOGLOBIN 28.4 pg (25.0-35.0); MEAN CORPUSCULAR HGB CONC 33.7 g/dl (31.0-37.0); MEAN PLATELET VOLUME 8.5 fl (7.0-11.0); MONO # 0.4 (0.1-0.6); MONO % 5.5 % (1.0-6.0); RBC 4.23 10^6/uL (3.5-6.1); RED CELL DISTRIBUTION WIDTH 13.2 % (11.5-14.5); WHITE BLOOD COUNT 6.5 10^3/uL (4.5-11.0)
--- NOTE | 2018-07-28 08:01 | DS ---
HISTORY OF PRESENT ILLNESS: The patient was admitted with acute complicated pyelonephritis with Gram-negative septicemia, seems to be doing well. She has no vomiting, she is eating better, sitting in the bed or chair and doing very well today. CLINICAL COURSE: She was admitted and started on IV Zosyn. Seen by ID consult and Urology consult . We will put a stent up to the pelvis over the kidney. It was draining the kidney very well and resolution of the symptoms. The patient feels better. Rocephin IV was given and the patient otherwise seems to be doing very well. The culture and sensitivity is sensitive to Levaquin, and before they will discharge, we will switch to p.o. Levaquin and because of generalized weakness we are going to transfer the patient to TCU for continuation of meds and physical therapy. PHYSICAL EXAMINATION: On 07/26/2018 is as follows: VITAL SIGNS: Temperature is 98, heart rate 79, blood pressure 139/75, respirations 16, saturation 97% on room air. HEAD AND NECK: Normal. No JVD, no thyromegaly. CHEST: Clear bilaterally. CARDIAC: First sound and second sound normal. ABDOMEN: Soft, nontender. EXTREMITIES: No edema. NEUROLOGIC: Normal. LABORATORY DATA: Discharge laboratories that had been done: A CT scan which shows right kidney hydronephrosis with a kidney stone of 11 mm. Laboratories that were done was within normal range. Urine culture, Gram negative. Blood culture, Gram negative. Otherwise stable. Creatinine was 2.6, went back to normal level. DISCHARGE DIAGNOSES: 1. Acute complicated pyelonephritis. 2. Gram-negative bacteremia. 3. Diabetes type 2. 4. Depression. 5. Morbid obesity. 6. Chronic back pain. 7. Chronic knee osteoarthritis. 8. Anemia. ASSESSMENT AND PLAN: I discussed with the patient all information above including anemia and is supposed to do colonoscopy as outpatient and we will follow up that as outpatient. Also, we will discharge the patient to rehab and I will follow up clinically. Matthias Romo MD
[2018-07-28] MEDS: Insulin Reg-LOW-Coverage SC SCH ×4 (08:23→22:14)
[2018-07-28] MEDS: levoFLOXacin 750 MG TAB PO SCH (09:23)
[2018-07-28] MEDS: Magnesium Oxide 400 mg Tab UD PO SCH ×3 (09:23→17:18)
--- NOTE | 2018-07-28 15:17 | CP.PCM.PN ---
Subjective - Date & Time of Evaluation Date of Evaluation: 07/28/18 Time of Evaluation: 15:16 - Subjective Subjective: Nephrology Consultation Note: Assessment: stable E Coli UTI with sepsis with Rt stone/hydronephrosis Acute Kidney Injury (N17.9) likely due to sepsis, ATN and some contribution by Rt stone/hydronephrosis: resolved Diabetic chronic Kidney Disease (E11.22) Chronic Kidney Disease (N18.3) Stage 3 with ? mg proteinuria (R80.9) likely due to DM/HTN/obesity recurrent kidney stones morbid obesity respi acidosis Plan No acute need for renal replacement therapy at this time. Hypertension control with meds as ordered. Maintain hemodynamics stable. Avoid hypotension. Patient not on ACEI/ARB due to recent BREE Monitor Input/Output, daily weights supplement lytes as needed urology and ID recs appreciated from previous admission to medical service. will need outpt work up for recurrent kidney stones. will give lasix for next few days with KCL Dose meds/antibiotics for improved GFR. Avoid fleets enema/magnesium based laxatives. Avoid nephrotoxins/NSAIDs/ iodinated contrast (unless needed emergently) Glycemic control Further work up/management as per primary team Thanks for allowing me to participate in care of your patient. Will follow patient with you. Please call if any Qs. had d/w team Dr Lele Guerin Office: [phone] Chief Complaint; too much urine Reason for consult: Acute Kidney Injury HPI: Pt is a 68 F with hx of diabetes Mellitus ( years), kidney stones, morbid obesity initially presented with complaints of fever and not feeling well, found to have urosepsis with Rt hydronephrosis with 11 mm stone s/p ureteric stone seen for BREE. denies any other complaints. no CP/SOB/nausea/vomitting. pt not aware about kidney disease in past. her baseline cr 1-1.3 suggestive of baseline CKD 3.d/c to [facility] and seen in consult today Denies OTC/herbal meds or NSAIDs No recent iodinated contrast exposure. No obvious episodes of low BP. ROS: Cardiovascular: No chest pain. Pulmonary: No shortness of breath Gastrointestinal: denies abdominal pain No nausea. No vomiting. Genitourinary: No pain while urinating. Denies blood in urine. says making lot of urine now All other negative except as mentioned in HPI. c/o legs swelling Physical Examination: General Appearance: Comfortable, in no acute respiratory distress, co-operative . morbid obesity Vitals reviewed and noted as below Head; Atraumatic, normocephalic ENT: no ulcers no thrush. Tongue is midline. Oropharynx: no rash or ulcers. EYES: Pupils are equal, round and reactive to light accommodation. Eye muscles and extraocular movement intact. Sclera is anicteric. Neck; supple no lymphadenopathy, no thyromegaly or bruit Lungs: Normal respiratory rate/effort. Breath sounds bilateral equal and clear Heart: Normal rate. s1s2 normal. No rub or gallop. Extremities: ankle edema +. No varicose veins Neurological: Patient is alert, awake and oriented to person, place and time. No focal deficit. Strength bilateral appropriate and equal Skin: Warm and dry. Normal turgor. No rash. Palpitation: Normal elasticity for age Abdomen: Abdomen is soft. Bowel sounds +. There is no abdominal tenderness, no guarding/rigidity no organomegaly Psych: normal insight and normal affect/mood MSK: no joint tenderness or swelling. Digits and nails normal, no deformity : kidney or bladder not palpable Labs/imaging reviewed. Past medical history, past surgical history, family history, social history, allergy reviewed and noted as below Family hx: no hx of CKD. Rest non-contributory work up: imaging: rt side 11 mm stone with hydro pH: 7.27/pCo2: 56 urine/blood cx: E. Coli Objective - Vital Signs/Intake and Output Vital Signs (last 24 hours): Temp Pulse Resp BP Pulse Ox 98.8 F 75 18 122/86 97 07/27/18 16:00 07/27/18 16:00 07/27/18 16:00 07/27/18 16:00 07/27/18 16:00 - Medications Medications: Current Medications Enoxaparin Sodium (Lovenox) 30 mg SC 0600 [facility]; Protocol Last Admin: 07/28/18 05:19 Dose: 30 mg Insulin Human Regular (Humulin R Low) 0 units SC [facility]; Protocol Last Admin: 07/28/18 13:14 Dose: Not Given Ketorolac Tromethamine (Toradol) 30 mg IVP ONCE PRN PRN Reason: Pain, moderate (4-7) Levofloxacin (Levaquin) 750 mg PO Q48H [facility]; Protocol Stop: 08/09/18 11:00 Last Admin: 07/28/18 09:23 Dose: 750 mg Magnesium Oxide (Mag-Ox) 400 mg PO BID [facility] Last Admin: 07/28/18 09:24 Dose: Not Given Metformin HCl (Glucophage) 500 mg PO BID [facility] Last Admin: 07/28/18 09:22 Dose: 500 mg Morphine Sulfate (Morphine) 1 mg IVP Q6 PRN PRN Reason: Pain, severe (8-10) Ondansetron HCl (Zofran Inj) 4 mg IVP Q4H PRN PRN Reason: Nausea/Vomiting Pantoprazole Sodium (Protonix Ec Tab) 20 mg PO 0600 [facility] Last Admin: 07/28/18 05:19 Dose: 20 mg Paroxetine HCl (Paxil) 20 mg PO BID [facility] Last Admin: 07/28/18 09:24 Dose: 20 mg Tamsulosin HCl (Flomax) 0.4 mg PO 1800 [facility] - Labs Labs: 07/28/18 06:00 07/28/18 06:00
[2018-07-28] MEDS: Potassium Chloride 20 mEq ER Tab PO SCH (17:15)
[2018-07-29] MEDS: Enoxaparin 30 mg Syringe SC SCH (05:20)
[2018-07-29] MEDS: Pantoprazole 20 mg EC Tab PO SCH (05:20)
[2018-07-29 06:17] LABS: BASO # 0.01 K/mm3 (0.0-2.0); BASO % 0.1 % (0.0-3.0); EOS # 0.2 (0.0-0.7); EOS % 2.7 % (1.5-5.0); GRAN # 5.92 (1.4-6.5); GRAN % 72.4 % (50.0-68.0); HEMOGLOBIN 11.8 g/dL (12.0-16.0); LYMPH # 1.6 (1.2-3.4); LYMPH % 19.9 % (22.0-35.0); MEAN CELL VOLUME 83.8 fl (80.0-105.0); MEAN CORPUSCULAR HEMOGLOBIN 28.2 pg (25.0-35.0); MEAN CORPUSCULAR HGB CONC 33.6 g/dl (31.0-37.0); MEAN PLATELET VOLUME 8.7 fl (7.0-11.0); MONO # 0.4 (0.1-0.6); MONO % 4.9 % (1.0-6.0); RBC 4.19 10^6/uL (3.5-6.1); RED CELL DISTRIBUTION WIDTH 13.3 % (11.5-14.5); WHITE BLOOD COUNT 8.2 10^3/uL (4.5-11.0)
[2018-07-29 06:24] LABS: ALBUMIN 3.1 g/dL (3.0-4.8); CALCIUM 9.4 mg/dL (8.4-10.5)
[2018-07-29] MEDS: Insulin Reg-LOW-Coverage SC SCH ×4 (08:31→23:40)
[2018-07-29] MEDS: Potassium Chloride 20 mEq ER Tab PO SCH (08:33)
[2018-07-29] MEDS: Magnesium Oxide 400 mg Tab UD PO SCH ×2 (09:08→17:21)
[2018-07-29] MEDS ORDERED: Influenza Vaccine 60 mcg/0.5 mL SYR (4YR UP) IM ONE (14:10)
[2018-07-29] MEDS ORDERED: Pneumococcal 23-Valent Vaccine IM ONE ×2 (14:10→17:38)
--- NOTE | 2018-07-29 15:06 | PN ---
DATE: 07/28/2018 SUBJECTIVE: The patient is comfortable. No distress. She did have loose bowel movement 2 times, otherwise she seems better. No nausea, no vomiting, tolerating medications very well. PHYSICAL EXAMINATION: VITAL SIGNS: Stable. Temperature 98.6, heart rate 76, blood pressure 120/86, respirations 18, saturation 96%. HEAD AND NECK: Normal. No JVD. No thyromegaly. CHEST: Clear. Good air entry. CARDIAC: First sound and second sound normal. ABDOMEN: Soft and nontender. EXTREMITIES: No edema. NEUROLOGICAL: Normal. LABORATORY STUDIES: Show white count 6.5, hemoglobin 12, hematocrit 35, platelets 253,000. Chemistry shows sodium 139, potassium 3.9, chloride 106, bicarb 25, BUN 19, creatinine 1.2. IMPRESSION: 1. Acute complicated pyelonephritis with hydronephrosis and stool impaction, status post stent placement. Gram-negative urine infection. Continue Levaquin 750 every other day. Patient otherwise is stable. 2. Hypertension, stable. 3. Diabetes type 2. 4. Chronic back pain, chronic osteoarthritis. CURRENT MEDICATIONS: Flomax 0.4 once a day, Glucophage 500 b.i.d., insulin coverage, K-dur 20 p.o. daily, Lasix 20 p.o. daily, Levaquin every other day for 48 hours, Lovenox 30 mg subcutaneously, magnesium oxide 400 b.i.d., morphine p.r.n., Paxil 20 b.i.d., Protonix 20 once a day, p.r.n. and Zofran p.r.n. PLAN: Continue current therapy. Matthias Romo MD
--- NOTE | 2018-07-29 15:39 | CP.PCM.PN ---
Subjective - Date & Time of Evaluation Date of Evaluation: 07/29/18 Time of Evaluation: 15:39 - Subjective Subjective: Nephrology Consultation Note: Assessment: stable E Coli UTI with sepsis with Rt stone/hydronephrosis Acute Kidney Injury (N17.9) likely due to sepsis, ATN and some contribution by Rt stone/hydronephrosis: resolved Diabetic chronic Kidney Disease (E11.22) Chronic Kidney Disease (N18.3) Stage 3 with ? mg proteinuria (R80.9) likely due to DM/HTN/obesity recurrent kidney stones morbid obesity respi acidosis Plan No acute need for renal replacement therapy at this time. Hypertension control with meds as ordered. Maintain hemodynamics stable. Avoid hypotension. Patient not on ACEI/ARB due to recent BREE Monitor Input/Output, daily weights supplement lytes as needed urology and ID recs appreciated from previous admission to medical service. will need outpt work up for recurrent kidney stones. will give lasix for next few days with KCL Dose meds/antibiotics for improved GFR. Avoid fleets enema/magnesium based laxatives. Avoid nephrotoxins/NSAIDs/ iodinated contrast (unless needed emergently) Glycemic control Further work up/management as per primary team Thanks for allowing me to participate in care of your patient. Will follow patient with you. Please call if any Qs. had d/w team Dr Lele Guerin Office: [phone] Chief Complaint; too much urine Reason for consult: Acute Kidney Injury HPI: Pt is a 68 F with hx of diabetes Mellitus ( years), kidney stones, morbid obesity initially presented with complaints of fever and not feeling well, found to have urosepsis with Rt hydronephrosis with 11 mm stone s/p ureteric stone seen for BREE. denies any other complaints. no CP/SOB/nausea/vomitting. pt not aware about kidney disease in past. her baseline cr 1-1.3 suggestive of baseline CKD 3.d/c to [facility] and seen in consult today Denies OTC/herbal meds or NSAIDs No recent iodinated contrast exposure. No obvious episodes of low BP. ROS: Cardiovascular: No chest pain. Pulmonary: No shortness of breath Gastrointestinal: denies abdominal pain No nausea. No vomiting. Genitourinary: No pain while urinating. Denies blood in urine. says making lot of urine now All other negative except as mentioned in HPI. c/o legs swelling Physical Examination: General Appearance: Comfortable, in no acute respiratory distress, co-operative . morbid obesity Vitals reviewed and noted as below Head; Atraumatic, normocephalic ENT: no ulcers no thrush. Tongue is midline. Oropharynx: no rash or ulcers. EYES: Pupils are equal, round and reactive to light accommodation. Eye muscles and extraocular movement intact. Sclera is anicteric. Neck; supple no lymphadenopathy, no thyromegaly or bruit Lungs: Normal respiratory rate/effort. Breath sounds bilateral equal and clear Heart: Normal rate. s1s2 normal. No rub or gallop. Extremities: ankle edema +. No varicose veins Neurological: Patient is alert, awake and oriented to person, place and time. No focal deficit. Strength bilateral appropriate and equal Skin: Warm and dry. Normal turgor. No rash. Palpitation: Normal elasticity for age Abdomen: Abdomen is soft. Bowel sounds +. There is no abdominal tenderness, no guarding/rigidity no organomegaly Psych: normal insight and normal affect/mood MSK: no joint tenderness or swelling. Digits and nails normal, no deformity : kidney or bladder not palpable Labs/imaging reviewed. Past medical history, past surgical history, family history, social history, allergy reviewed and noted as below Family hx: no hx of CKD. Rest non-contributory work up: imaging: rt side 11 mm stone with hydro pH: 7.27/pCo2: 56 urine/blood cx: E. Coli Objective - Vital Signs/Intake and Output Vital Signs (last 24 hours): Temp Pulse Resp BP Pulse Ox 97.5 F L 80 18 130/83 98 07/29/18 09:47 07/29/18 09:47 07/29/18 09:47 07/29/18 09:47 07/29/18 09:47 - Medications Medications: Current Medications Enoxaparin Sodium (Lovenox) 30 mg SC 0600 [facility]; Protocol Last Admin: 07/29/18 05:20 Dose: 30 mg Furosemide (Lasix) 20 mg PO DAILY [facility] Stop: 07/31/18 15:31 Last Admin: 07/29/18 09:07 Dose: 20 mg Insulin Human Regular (Humulin R Low) 0 units SC ACHS [facility]; Protocol Last Admin: 07/29/18 11:38 Dose: Not Given Ketorolac Tromethamine (Toradol) 30 mg IVP ONCE PRN PRN Reason: Pain, moderate (4-7) Levofloxacin (Levaquin) 750 mg PO Q48H [facility]; Protocol Stop: 08/09/18 11:00 Last Admin: 07/28/18 09:23 Dose: 750 mg Loperamide HCl (Imodium) 2 mg PO DAILY PRN PRN Reason: LBM Last Admin: 07/29/18 14:54 Dose: 2 mg Magnesium Oxide (Mag-Ox) 400 mg PO BID [facility] Last Admin: 07/29/18 09:08 Dose: 400 mg Metformin HCl (Glucophage) 500 mg PO BID [facility] Last Admin: 07/29/18 09:07 Dose: 500 mg Metronidazole (Flagyl) 500 mg PO Q8 [facility]; Protocol Morphine Sulfate (Morphine) 1 mg IVP Q6 PRN PRN Reason: Pain, severe (8-10) Ondansetron HCl (Zofran Inj) 4 mg IVP Q4H PRN PRN Reason: Nausea/Vomiting Pantoprazole Sodium (Protonix Ec Tab) 20 mg PO 0600 [facility] Last Admin: 07/29/18 05:20 Dose: 20 mg Paroxetine HCl (Paxil) 20 mg PO BID [facility] Last Admin: 07/29/18 09:08 Dose: 20 mg Potassium Chloride (K-Dur 20 Meq Er Tab) 20 meq PO 0800 [facility] Stop: 07/31/18 15:31 Last Admin: 07/29/18 08:33 Dose: 20 meq Tamsulosin HCl (Flomax) 0.4 mg PO 1800 [facility] Last Admin: 07/28/18 17:15 Dose: 0.4 mg - Labs Labs: 07/29/18 05:30 07/29/18 05:30
[2018-07-30] MEDS: Enoxaparin 30 mg Syringe SC SCH (05:43)
[2018-07-30] MEDS: Pantoprazole 20 mg EC Tab PO SCH (05:43)
[2018-07-30 07:06] LABS: BASO # 0.02 K/mm3 (0.0-2.0); BASO % 0.3 % (0.0-3.0); EOS # 0.2 (0.0-0.7); GRAN # 5.62 (1.4-6.5); GRAN % 70.6 % (50.0-68.0); HEMOGLOBIN 11.8 g/dL (12.0-16.0); LYMPH # 1.7 (1.2-3.4); LYMPH % 21.5 % (22.0-35.0); MEAN CELL VOLUME 84.4 fl (80.0-105.0); MEAN CORPUSCULAR HGB CONC 33.1 g/dl (31.0-37.0); MEAN PLATELET VOLUME 8.7 fl (7.0-11.0); MONO # 0.4 (0.1-0.6); MONO % 4.6 % (1.0-6.0); RBC 4.22 10^6/uL (3.5-6.1); RED CELL DISTRIBUTION WIDTH 13.4 % (11.5-14.5)
[2018-07-30] MEDS: Insulin Reg-LOW-Coverage SC SCH ×4 (07:19→21:13)
[2018-07-30 07:32] LABS: ALBUMIN 3.2 g/dL (3.0-4.8); CALCIUM 9.5 mg/dL (8.4-10.5)
[2018-07-30] MEDS: Potassium Chloride 20 mEq ER Tab PO SCH (08:45)
--- NOTE | 2018-07-30 09:30 | PN ---
DATE: 07/29/2018 SUBJECTIVE: The patient is comfortable, in no distress. She has no other complaint. Bowel movement okay. She complained of arthritis pain. The patient is otherwise stable. PHYSICAL EXAMINATION: VITAL SIGNS: Temperature 97.5, heart rate 80, blood pressure 130/83, respirations 18, sat 98%. HEAD AND NECK: Normal. No JVD. No thyromegaly. CHEST: Clear bilateral. CARDIAC: First sound and second sound normal. No murmur, rub, gallop. ABDOMEN: Soft, nontender, obese. EXTREMITIES: No edema. NEUROLOGIC: Normal. LABORATORY DATA: White count 8, hemoglobin 11.8, hematocrit 35.6, platelets 308. Chemistry: Sodium 137, potassium 3.7, chloride 104, bicarb 26, BUN 21, creatinine 1.2 and blood sugar 114, calcium 9.8, phosphorus 4.6. Liver function test is normal. IMPRESSION AND PLAN: 1. Urinary tract infections, complicated pyelonephritis, doing better. Continue Levaquin every other day. 2. Diabetes. Continue insulin coverage plus metformin. 3. The patient did have a diarrhea. Seems resolved; however, if it recur, we will get a stool Clostridium difficile and put the patient on Flagyl and we will give her Imodium. 4. Morbid obesity, weakness. Continue physical therapy. 5. Depression. Continue Paxil 40 mg daily. 6. Electrolyte abnormalities. Low magnesium, being replaced 400 b.i.d. We will continue K-Dur and Lasix p.r.n. for her edema of lower extremity. 7. We will give the patient vaccination for influenza and pneumonia and we will put the patient on Meloxicam, a small dose for her arthritis. We will monitor her kidney functions first and we will follow up clinically. Matthias Romo MD
[2018-07-30] MEDS: Magnesium Oxide 400 mg Tab UD PO SCH ×2 (10:53→17:29)
[2018-07-30] MEDS: levoFLOXacin 750 MG TAB PO SCH (10:53)
[2018-07-31] MEDS: Pantoprazole 20 mg EC Tab PO SCH (05:39)
[2018-07-31] MEDS: Enoxaparin 30 mg Syringe SC SCH (05:39)
[2018-07-31] MEDS: Insulin Reg-LOW-Coverage SC SCH ×4 (08:55→22:24)
[2018-07-31] MEDS: Potassium Chloride 20 mEq ER Tab PO SCH (08:56)
[2018-07-31] MEDS: Magnesium Oxide 400 mg Tab UD PO SCH ×2 (09:18→17:23)
--- NOTE | 2018-07-31 15:04 | CP.PCM.PN ---
Subjective - Date & Time of Evaluation Date of Evaluation: 07/31/18 Time of Evaluation: 15:03 - Subjective Subjective: Nephrology Consultation Note: Assessment: stable E Coli UTI with sepsis with Rt stone/hydronephrosis Acute Kidney Injury (N17.9) likely due to sepsis, ATN and some contribution by Rt stone/hydronephrosis: resolved Diabetic chronic Kidney Disease (E11.22) Chronic Kidney Disease (N18.3) Stage 3 with ? mg proteinuria (R80.9) likely due to DM/HTN/obesity recurrent kidney stones morbid obesity respi acidosis Plan No acute need for renal replacement therapy at this time. Hypertension control with meds as ordered. Maintain hemodynamics stable. Avoid hypotension. losartan resumed Monitor Input/Output, daily weights supplement lytes as needed urology and ID recs appreciated from previous admission to medical service. will need outpt work up for recurrent kidney stones. started on hctz, hence d/c lasix/kcl Dose meds/antibiotics for improved GFR. Avoid fleets enema/magnesium based laxatives. Avoid nephrotoxins/NSAIDs/ iodinated contrast (unless needed emergently) Glycemic control Further work up/management as per primary team Thanks for allowing me to participate in care of your patient. Will follow patient with you. Please call if any Qs. had d/w team Dr Lele Guerin Office: [phone] Chief Complaint; too much urine Reason for consult: Acute Kidney Injury HPI: Pt is a 68 F with hx of diabetes Mellitus ( years), kidney stones, morbid obesity initially presented with complaints of fever and not feeling well, found to have urosepsis with Rt hydronephrosis with 11 mm stone s/p ureteric stone seen for BREE. denies any other complaints. no CP/SOB/nausea/vomitting. pt not aware about kidney disease in past. her baseline cr 1-1.3 suggestive of baseline CKD 3.d/c to [facility] and seen in consult today Denies OTC/herbal meds or NSAIDs No recent iodinated contrast exposure. No obvious episodes of low BP. ROS: Cardiovascular: No chest pain. Pulmonary: No shortness of breath Gastrointestinal: denies abdominal pain No nausea. No vomiting. Genitourinary: No pain while urinating. Denies blood in urine. says making lot of urine now All other negative except as mentioned in HPI. c/o legs swelling Physical Examination: General Appearance: Comfortable, in no acute respiratory distress, co-operative . morbid obesity Vitals reviewed and noted as below Head; Atraumatic, normocephalic ENT: no ulcers no thrush. Tongue is midline. Oropharynx: no rash or ulcers. EYES: Pupils are equal, round and reactive to light accommodation. Eye muscles and extraocular movement intact. Sclera is anicteric. Neck; supple no lymphadenopathy, no thyromegaly or bruit Lungs: Normal respiratory rate/effort. Breath sounds bilateral equal and clear Heart: Normal rate. s1s2 normal. No rub or gallop. Extremities: ankle edema +. No varicose veins Neurological: Patient is alert, awake and oriented to person, place and time. No focal deficit. Strength bilateral appropriate and equal Skin: Warm and dry. Normal turgor. No rash. Palpitation: Normal elasticity for age Abdomen: Abdomen is soft. Bowel sounds +. There is no abdominal tenderness, no guarding/rigidity no organomegaly Psych: normal insight and normal affect/mood MSK: no joint tenderness or swelling. Digits and nails normal, no deformity : kidney or bladder not palpable Labs/imaging reviewed. Past medical history, past surgical history, family history, social history, allergy reviewed and noted as below Family hx: no hx of CKD. Rest non-contributory work up: imaging: rt side 11 mm stone with hydro pH: 7.27/pCo2: 56 urine/blood cx: E. Coli Objective - Vital Signs/Intake and Output Vital Signs (last 24 hours): Temp Pulse Resp BP Pulse Ox 97.3 F L 80 20 150/84 95 07/31/18 10:00 07/31/18 10:00 07/31/18 10:00 07/31/18 10:00 07/31/18 10:00 - Medications Medications: Current Medications Enoxaparin Sodium (Lovenox) 30 mg SC 0600 [facility]; Protocol Last Admin: 07/31/18 05:39 Dose: 30 mg Hydrochlorothiazide (Microzide) 12.5 mg PO DAILY [facility]; Protocol Insulin Human Regular (Humulin R Low) 0 units SC ACHS [facility]; Protocol Last Admin: 07/31/18 11:42 Dose: Not Given Ketorolac Tromethamine (Toradol) 30 mg IVP ONCE PRN PRN Reason: Pain, moderate (4-7) Loperamide HCl (Imodium) 2 mg PO DAILY PRN PRN Reason: LBM Last Admin: 07/29/18 14:54 Dose: 2 mg Loratadine (Claritin) 5 mg PO HS [facility]; Protocol Losartan Potassium (Cozaar) 50 mg PO DAILY [facility] Magnesium Oxide (Mag-Ox) 400 mg PO BID [facility] Last Admin: 07/31/18 09:18 Dose: 400 mg Metformin HCl (Glucophage) 500 mg PO BID [facility] Last Admin: 07/31/18 09:05 Dose: 500 mg Metronidazole (Flagyl) 500 mg PO Q8 [facility]; Protocol Last Admin: 07/31/18 14:25 Dose: 500 mg Ondansetron HCl (Zofran Inj) 4 mg IVP Q4H PRN PRN Reason: Nausea/Vomiting Pantoprazole Sodium (Protonix Ec Tab) 20 mg PO 0600 [facility] Last Admin: 07/31/18 05:39 Dose: 20 mg Paroxetine HCl (Paxil) 20 mg PO BID [facility] Last Admin: 07/31/18 09:05 Dose: 20 mg Tamsulosin HCl (Flomax) 0.4 mg PO 1800 [facility] Last Admin: 07/30/18 17:27 Dose: 0.4 mg - Labs Labs: 07/30/18 06:00 07/30/18 06:00
[2018-08-01] MEDS: Pantoprazole 20 mg EC Tab PO SCH (05:41)
[2018-08-01] MEDS: Enoxaparin 30 mg Syringe SC SCH (05:41)
[2018-08-01] MEDS: Insulin Reg-LOW-Coverage SC SCH ×4 (06:51→21:59)
[2018-08-01] MEDS: Magnesium Oxide 400 mg Tab UD PO SCH ×2 (12:02→17:52)
[2018-08-01 12:54] LABS: CALCIUM 9.9 mg/dL (8.4-10.5)
--- NOTE | 2018-08-01 13:05 | PN ---
DATE: 07/30/2018 SUBJECTIVE: Patient is in Transitional Care Unit. She seems to be doing well, eating well. There is no problem. Her edema seems better. She has no chest pain. No shortness of breath. She is walking, getting physical therapy and walked into the bathroom with a cane, otherwise she is doing very well. PHYSICAL EXAMINATION: On 07/30/2018 is as follows: VITAL SIGNS: Temperature 98.2, heart rate 91, blood pressure 148/83, respirations 20, saturating 95% on room air. HEAD AND NECK: Normal. No JVD. No thyromegaly. CHEST: Clear bilaterally. CARDIAC: First sound and second sound normal. ABDOMEN: Obese, nontender. EXTREMITIES: Mild trace edema. NEUROLOGICAL: Normal. LABORATORY DATA: On 07/30/2018 shows the following: White count 8, hemoglobin 11.8, hematocrit 35.6, platelets 308,000. Chemistry: Sodium 138, potassium is 3.7, chloride 105, bicarb 26, BUN 19, creatinine 1.3, blood sugar is 112. Magnesium 1.6. IMPRESSION AND PLAN: 1. Generalized weakness, deconditioning. Continue physical therapy, ambulation, gait stability and training. and follow up daily. 2. Acute renal insufficiency related probably to diuretics, increase p.o. intake. Keep the leg elevated. We will consider stockings and ambulation. We will monitor her kidney condition and follow up with a rhia. 3. Diabetes. She is getting metformin plus sliding scale. 4. Status post acute complicated pyelonephritis with hydronephrosis and stent placement. Continue current antibiotics, p.o. Levaquin. 5. Loose bowel movement. Stool for Clostridium difficile was sent, we will follow up with that. Continue current therapy. Follow up clinically. Matthias Romo MD
--- NOTE | 2018-08-01 13:57 | PN ---
DATE: 07/31/2018 SUBJECTIVE: Patient is ambulating in physical therapy, used a cane. She seems doing better. She complained of loose bowel movements more often and otherwise stable. PHYSICAL EXAMINATION: On 07/31/2018: VITAL SIGNS: Temperature 98.1, heart rate 86, blood pressure is 150/84, respirations 20 and saturating 94% on room air. HEAD AND NECK: Normal. No JVD. No thyromegaly. CHEST: Clear bilaterally. CARDIAC: First sound and second sound normal. ABDOMEN: Obese, nontender. EXTREMITIES: Trace mild edema. NEUROLOGIC: Normal. LABORATORY DATA: Blood sugar of 117, 118 on a sliding scale. IMPRESSION AND PLAN: 1. Diarrhea or loose bowel movement. Clostridium difficile came back negative. We will continue Flagyl, probably could be side effects from p.o. antibiotics. Encourage oral fluids. 2. The patient has a history of allergic rhinitis. We are going to give her Claritin 4 mg maybe at night that will help her symptoms. 3. Patient does have also anemia. Patient is advised to get a colonoscopy several times. Again, I did talk to the patient about it. Colonoscopy is needed. We will need GI consult for anemia to first evaluate that and especially with diarrhea. 4. Renal insufficiency, probably perirenal due to diuretics. We will repeat her chemistry. Nephrology will see her. We will discontinue Lasix and potassium, and probably for hypertension, I am going to put her on Cozaar 50 mg which she has been taking before and hydrochlorothiazide that changed to diuretics for in addition to . Hydrochlorothiazide dose is 12.5 mg daily. 5. Depression. Continue Paxil 40 a day. 6. Hypertension. Continue Hyzaar, which is Cozaar plus HCTZ 12.5 mg daily. CURRENT MEDICATIONS: She is getting Claritin 4 mg at night, Cozaar 50, Flagyl 500 daily, Flomax 0.4 daily, metformin 500 b.i.d., insulin coverage, Imodium p.r.n., Lovenox 30 subcutaneously daily, magnesium 400 b.i.d., hydrochlorothiazide 12.5 mg daily, Paxil 40 once a day, Protonix 20 p.o. daily and Zofran 4 mg p.r.n. Continue current therapy. Follow up clinically. Matthias Romo MD [facility] # [id number]
--- NOTE | 2018-08-01 15:05 | CP.PCM.PN ---
Subjective - Date & Time of Evaluation Date of Evaluation: 08/01/18 Time of Evaluation: 15:04 - Subjective Subjective: Nephrology Consultation Note: Assessment: stable E Coli UTI with sepsis with Rt stone/hydronephrosis Acute Kidney Injury (N17.9) likely due to sepsis, ATN and some contribution by Rt stone/hydronephrosis: resolved Diabetic chronic Kidney Disease (E11.22) Chronic Kidney Disease (N18.3) Stage 3 with ? mg proteinuria (R80.9) likely due to DM/HTN/obesity recurrent kidney stones morbid obesity respi acidosis Plan No acute need for renal replacement therapy at this time. cr slight higher but should improve gradually. Hypertension control with meds as ordered. Maintain hemodynamics stable. Avoid hypotension. losartan resumed Monitor Input/Output, daily weights supplement lytes as needed urology and ID recs appreciated from previous admission to medical service. will need outpt work up for recurrent kidney stones. started on hctz, hence d/c lasix/kcl Dose meds/antibiotics for reduced GFR. Avoid fleets enema/magnesium based laxatives. Avoid nephrotoxins/NSAIDs/ iodinated contrast (unless needed emergently) Glycemic control Further work up/management as per primary team Thanks for allowing me to participate in care of your patient. Will follow patient with you. Please call if any Qs. had d/w team Dr Lele Guerin Office: [phone] Chief Complaint; too much urine Reason for consult: Acute Kidney Injury HPI: Pt is a 68 F with hx of diabetes Mellitus ( years), kidney stones, morbid obesity initially presented with complaints of fever and not feeling well, found to have urosepsis with Rt hydronephrosis with 11 mm stone s/p ureteric stone seen for BREE. denies any other complaints. no CP/SOB/nausea/vomitting. pt not aware about kidney disease in past. her baseline cr 1-1.3 suggestive of baseline CKD 3.d/c to [facility] and seen in consult today Denies OTC/herbal meds or NSAIDs No recent iodinated contrast exposure. No obvious episodes of low BP. ROS: Cardiovascular: No chest pain. Pulmonary: No shortness of breath Gastrointestinal: denies abdominal pain No nausea. No vomiting. Genitourinary: No pain while urinating. Denies blood in urine. says making lot of urine now All other negative except as mentioned in HPI. c/o legs swelling Physical Examination: General Appearance: Comfortable, in no acute respiratory distress, co-operative . morbid obesity Vitals reviewed and noted as below Head; Atraumatic, normocephalic ENT: no ulcers no thrush. Tongue is midline. Oropharynx: no rash or ulcers. EYES: Pupils are equal, round and reactive to light accommodation. Eye muscles and extraocular movement intact. Sclera is anicteric. Neck; supple no lymphadenopathy, no thyromegaly or bruit Lungs: Normal respiratory rate/effort. Breath sounds bilateral equal and clear Heart: Normal rate. s1s2 normal. No rub or gallop. Extremities: ankle edema trace. No varicose veins Neurological: Patient is alert, awake and oriented to person, place and time. No focal deficit. Strength bilateral appropriate and equal Skin: Warm and dry. Normal turgor. No rash. Palpitation: Normal elasticity for age Abdomen: Abdomen is soft. Bowel sounds +. There is no abdominal tenderness, no guarding/rigidity no organomegaly Psych: normal insight and normal affect/mood MSK: no joint tenderness or swelling. Digits and nails normal, no deformity : kidney or bladder not palpable Labs/imaging reviewed. Past medical history, past surgical history, family history, social history, al malcolmgy reviewed and noted as below Family hx: no hx of CKD. Rest non-contributory work up: imaging: rt side 11 mm stone with hydro pH: 7.27/pCo2: 56 urine/blood cx: E. Coli Objective - Vital Signs/Intake and Output Vital Signs (last 24 hours): Temp Pulse Resp BP Pulse Ox 98.1 F 95 H 18 141/79 97 07/31/18 16:00 08/01/18 11:17 07/31/18 16:00 08/01/18 11:17 07/31/18 16:00 - Medications Medications: Current Medications Enoxaparin Sodium (Lovenox) 30 mg SC 0600 [facility]; Protocol Last Admin: 08/01/18 05:41 Dose: 30 mg Hydrochlorothiazide (Microzide) 12.5 mg PO DAILY [facility]; Protocol Last Admin: 08/01/18 11:17 Dose: 12.5 mg Insulin Human Regular (Humulin R Low) 0 units SC ACHS [facility]; Protocol Last Admin: 08/01/18 11:19 Dose: Not Given Ketorolac Tromethamine (Toradol) 30 mg IVP ONCE PRN PRN Reason: Pain, moderate (4-7) Loperamide HCl (Imodium) 2 mg PO DAILY PRN PRN Reason: LBM Last Admin: 07/29/18 14:54 Dose: 2 mg Loratadine (Claritin) 5 mg PO HS [facility]; Protocol Last Admin: 07/31/18 21:53 Dose: 5 mg Losartan Potassium (Cozaar) 50 mg PO DAILY [facility] Last Admin: 08/01/18 11:17 Dose: 50 mg Magnesium Oxide (Mag-Ox) 400 mg PO BID [facility] Last Admin: 08/01/18 12:02 Dose: 400 mg Metformin HCl (Glucophage) 500 mg PO BID [facility] Last Admin: 08/01/18 12:04 Dose: 500 mg Metronidazole (Flagyl) 500 mg PO Q8 [facility]; Protocol Last Admin: 08/01/18 05:41 Dose: 500 mg Ondansetron HCl (Zofran Inj) 4 mg IVP Q4H PRN PRN Reason: Nausea/Vomiting Pantoprazole Sodium (Protonix Ec Tab) 20 mg PO 0600 [facility] Last Admin: 08/01/18 05:41 Dose: 20 mg Paroxetine HCl (Paxil) 20 mg PO BID [facility] Last Admin: 08/01/18 12:03 Dose: 20 mg Tamsulosin HCl (Flomax) 0.4 mg PO 1800 [facility] Last Admin: 07/31/18 17:23 Dose: 0.4 mg - Labs Labs: 07/30/18 06:00 08/01/18 12:30
--- NOTE | 2018-08-01 16:42 | CP.PCM.CON ---
<Megan Lim - Last Filed: 08/01/18 16:36> History of Present Illness - History of Present Illness History of Present Illness: Gastroenterology Fellow/PGY6 Consult Note 68 year old morbidly obese female with PMH of Diabetes, CKD, and HTN presenting with ongoing treatment of deconditioning in rehab after admission for sepsis 2/2 Ecoli UTI complicated by pyelonephritis s/p right ureteral stent on 07/23/18. GI consultation for diarrhea. Patient notes two episodes of diarrhea two days ago w ith spontaneous resolution. Admits to once soft formed stool for the last two days. Notes small amount of bright red blood with wiping for once today with remote history of happening a few years ago that she associates with hemorrhoids. Denies nausea, vomiting, hematemesis, abdominal pain, constipation, melena, hematochezia, unintentional weight loss. No prior EGD or colonoscopy. Family History- denies stomach cancer, colon cancer Social History- denies tobacco, alcohol, or illicit drug use Surgical History- left eardrum repair Review of Systems - Review of Systems Review of Systems: 12-point review of systems negative except for as above Past Patient History - Infectious Disease Hx of Infectious Diseases: None - Past Social History Smoking Status: Unknown If Ever Smoked - CARDIAC Hx Hypertension: Yes - PULMONARY Hx Respiratory Disorders: No - NEUROLOGICAL Hx Neurological Disorder: No Hx Migraine: No - HEENT Hx HEENT Problems: Yes Hx Cataracts: Yes - RENAL Hx Chronic Kidney Disease: Yes Hx Pyelonephritis: Yes Other/Comment: Kidney stones - ENDOCRINE/METABOLIC Hx Diabetes Mellitus Type 2: Yes - HEMATOLOGICAL/ONCOLOGICAL Hx Blood Disorders: No - INTEGUMENTARY Hx Dermatological Problems: No - MUSCULOSKELETAL/RHEUMATOLOGICAL Hx Arthritis: Yes - GASTROINTESTINAL Hx Gastrointestinal Disorders: Yes Hx Gastroesophageal Reflux: Yes - GENITOURINARY/GYNECOLOGICAL Hx Reproductive Disorders: No - PSYCHIATRIC Hx Substance Use: No - SURGICAL HISTORY Other/Comment: Broken ear drum Meds Allergies/Adverse Reactions: Allergies Allergy/AdvReac Type Severity Reaction Status Date / Time No Known Allergies Allergy Verified 07/23/18 12:47 - Medications Medications: Current Medications Enoxaparin Sodium (Lovenox) 30 mg SC 0600 [facility]; Protocol Last Admin: 08/01/18 05:41 Dose: 30 mg Hydrochlorothiazide (Microzide) 12.5 mg PO DAILY [facility]; Protocol Last Admin: 08/01/18 11:17 Dose: 12.5 mg Insulin Human Regular (Humulin R Low) 0 units SC ACHS [facility]; Protocol Last Admin: 08/01/18 11:19 Dose: Not Given Ketorolac Tromethamine (Toradol) 30 mg IVP ONCE PRN PRN Reason: Pain, moderate (4-7) Loperamide HCl (Imodium) 2 mg PO DAILY PRN PRN Reason: LBM Last Admin: 07/29/18 14:54 Dose: 2 mg Loratadine (Claritin) 5 mg PO HS [facility]; Protocol Last Admin: 07/31/18 21:53 Dose: 5 mg Losartan Potassium (Cozaar) 50 mg PO DAILY [facility] Last Admin: 08/01/18 11:17 Dose: 50 mg Magnesium Oxide (Mag-Ox) 400 mg PO BID [facility] Last Admin: 08/01/18 12:02 Dose: 400 mg Metformin HCl (Glucophage) 500 mg PO BID [facility] Last Admin: 08/01/18 12:04 Dose: 500 mg Metronidazole (Flagyl) 500 mg PO Q8 [facility]; Protocol Last Admin: 08/01/18 05:41 Dose: 500 mg Ondansetron HCl (Zofran Inj) 4 mg IVP Q4H PRN PRN Reason: Nausea/Vomiting Pantoprazole Sodium (Protonix Ec Tab) 20 mg PO 0600 [facility] Last Admin: 08/01/18 05:41 Dose: 20 mg Paroxetine HCl (Paxil) 20 mg PO BID [facility] Last Admin: 08/01/18 12:03 Dose: 20 mg Tamsulosin HCl (Flomax) 0.4 mg PO 1800 [facility] Last Admin: 07/31/18 17:23 Dose: 0.4 mg Physical Exam - Constitutional Appears: Non-toxic, No Acute Distress - Head Exam Head Exam: ATRAUMATIC, NORMOCEPHALIC - Eye Exam Eye Exam: EOMI, PERRL. absent: Scleral icterus Pupil Exam: PERRL. absent: Miosis, Mydriatic - ENT Exam ENT Exam: Mucous Membranes Moist, Normal Oropharynx - Neck Exam Neck exam: Positive for: Full Rom, Normal Inspection - Respiratory Exam Respiratory Exam: Clear to Auscultation Bilateral. absent: Rales, Rhonchi, Wheezes - Cardiovascular Exam Cardiovascular Exam: RRR, +S1, +S2. absent: Gallop, Rubs - GI/Abdominal Exam GI & Abdominal Exam: Normal Bowel Sounds, Soft. absent: Distended, Firm, Guarding, Organomegaly, Rebound, Rigid, Tenderness - Rectal Exam Additional comments: refused - Extremities Exam Extremities exam: Positive for: normal inspection, pedal edema - Neurological Exam Neurological exam: Alert - Psychiatric Exam Psychiatric exam: Normal Affect, Normal Mood - Skin Skin Exam: Dry, Intact, Normal Color, Warm Results - Vital Signs Recent Vital Signs: Last Vital Signs Temp 98 F 08/01/18 16:00 Pulse 79 08/01/18 16:00 Resp 18 08/01/18 16:00 BP 116/76 08/01/18 16:00 Pulse Ox 92 L 08/01/18 16:00 - Labs Result Diagrams: 07/30/18 06:00 08/01/18 12:30 Labs: Laboratory Results - last 24 hr 07/30/18 07/30/18 07/30/18 11:55 16:48 21:12 Sodium Potassium Chloride Carbon Dioxide Anion Gap BUN Creatinine Est GFR ( Amer) Est GFR (Non-Af Amer) POC Glucose (mg/dL) 118 H 117 H 105 Random Glucose Calcium TIBC Ferritin 07/31/18 08/01/18 08/01/18 16:35 11:17 12:30 Sodium 138 Potassium 4.1 Chloride 101 Carbon Dioxide 26 Anion Gap 14 BUN 22 H Creatinine 1.4 H Est GFR ( Amer) 45 Est GFR (Non-Af Amer) 37 POC Glucose (mg/dL) 101 97 Random Glucose 123 H Calcium 9.9 TIBC Ferritin 158.0 08/01/18 12:30 Sodium Potassium Chloride Carbon Dioxide Anion Gap BUN Creatinine Est GFR ( Amer) Est GFR (Non-Af Amer) POC Glucose (mg/dL) Random Glucose Calcium TIBC 275 Ferritin Assessment & Plan - Assessment and Plan (Free Text) Assessment: 68 year old morbidly obese female with PMH of Diabetes, CKD, and HTN presenting with ongoing treatment of deconditioning in rehab after admission for sepsis 2/2 Ecoli UTI complicated by pyelonephritis s/p right ureteral stent on 07/23/18. GI consultation for diarrhea. No prior EGD or colonoscopy. Plan: -Cdiff negative -resolved diarrhea -likely antibiotic induced diarrhea -ordered Prep-H for history of hemorrhoids and rectal itching today for history of hemorrhoid -refused rectal exam -H/H stable -recommend elective outpatient colonoscopy for colorectal cancer screening <Grey Oden V - Last Filed: 08/02/18 00:56> Meds - Medications Medications: Current Medications Enoxaparin Sodium (Lovenox) 30 mg SC 0600 [facility]; Protocol Last Admin: 08/01/18 05:41 Dose: 30 mg Hydrochlorothiazide (Microzide) 12.5 mg PO DAILY [facility]; Protocol Last Admin: 08/01/18 11:17 Dose: 12.5 mg Hydrocortisone (Anusol-Hc) 1 gm [place] BID [facility] Last Admin: 08/01/18 17:56 Dose: Not Given Insulin Human Regular (Humulin R Low) 0 units SC ACHS [facility]; Protocol Last Admin: 08/01/18 21:59 Dose: Not Given Loperamide HCl (Imodium) 2 mg PO DAILY PRN PRN Reason: LBM Last Admin: 07/29/18 14:54 Dose: 2 mg Loratadine (Claritin) 5 mg PO HS [facility]; Protocol Last Admin: 08/01/18 21:12 Dose: 5 mg Losartan Potassium (Cozaar) 50 mg PO DAILY [facility] Last Admin: 08/01/18 11:17 Dose: 50 mg Magnesium Oxide (Mag-Ox) 400 mg PO BID [facility] Last Admin: 08/01/18 17:52 Dose: 400 mg Metformin HCl (Glucophage) 500 mg PO BID [facility] Last Admin: 08/01/18 17:53 Dose: 500 mg Ondansetron HCl (Zofran Inj) 4 mg IVP Q4H PRN PRN Reason: Nausea/Vomiting Pantoprazole Sodium (Protonix Ec Tab) 20 mg PO 0600 [facility] Last Admin: 08/01/18 05:41 Dose: 20 mg Paroxetine HCl (Paxil) 20 mg PO BID [facility] Last Admin: 08/01/18 17:53 Dose: 20 mg Tamsulosin HCl (Flomax) 0.4 mg PO 1800 [facility] Last Admin: 08/01/18 17:52 Dose: 0.4 mg Results - Vital Signs Recent Vital Signs: Last Vital Signs Temp 98 F 08/01/18 16:00 Pulse 79 08/01/18 16:00 Resp 18 08/01/18 16:00 BP 116/76 08/01/18 16:00 Pulse Ox 92 L 08/01/18 16:00 - Labs Result Diagrams: 07/30/18 06:00 08/01/18 12:30 Labs: Laboratory Results - last 24 hr 07/30/18 07/30/18 07/30/18 11:55 16:48 21:12 Sodium Potassium Chloride Carbon Dioxide Anion Gap BUN Creatinine Est GFR ( Amer) Est GFR (Non-Af Amer) POC Glucose (mg/dL) 118 H 117 H 105 Random Glucose Calcium TIBC Transferrin Ferritin 07/31/18 08/01/18 08/01/18 16:35 11:17 12:30 Sodium 138 Potassium 4.1 Chloride 101 Carbon Dioxide 26 Anion Gap 14 BUN 22 H Creatinine 1.4 H Est GFR ( Amer) 45 Est GFR (Non-Af Amer) 37 POC Glucose (mg/dL) 101 97 Random Glucose 123 H Calcium 9.9 TIBC Transferrin Ferritin 158.0 08/01/18 08/01/18 08/01/18 12:30 12:30 16:54 Sodium Potassium Chloride Carbon Dioxide Anion Gap BUN Creatinine Est GFR ( Amer) Est GFR (Non-Af Amer) POC Glucose (mg/dL) 104 Random Glucose Calcium TIBC 275 Transferrin 205.94 L Ferritin Attending/Attestation - Attestation I have personally seen and examined this patient.: Yes I have fully participated in the care of the patient.: Yes I have reviewed all pertinent clinical information: Yes Notes (Text): This is an addendum to GI consult report dictated by the GI Fellow.The patient was seen and examined earlier. Medical records, lab studies, imagings were reviewed. Last 24 hours events reviewed. Agreed with the above treatment plan as outlined in GI Fellow 's notes with the addition of the following Patient diarrhea has completely resolved On examination abdomen soft non-tender Recommend elective colonoscopic evaluation Discussed with patient 08/02/18 00:55
[2018-08-01] MEDS: Hydrocortisone 2.5% Rectal Cream(30 gm) PR SCH (17:56)
[2018-08-02] MEDS: Enoxaparin 30 mg Syringe SC SCH (05:05)
[2018-08-02] MEDS: Pantoprazole 20 mg EC Tab PO SCH (05:06)
[2018-08-02] MEDS: Insulin Reg-LOW-Coverage SC SCH ×4 (06:32→21:26)
--- NOTE | 2018-08-02 09:03 | CP.PCM.PN ---
<Megan Lim - Last Filed: 08/02/18 09:00> Subjective - Date & Time of Evaluation Date of Evaluation: 08/02/18 Time of Evaluation: 09:00 - Subjective Subjective: Gastroenterology Fellow/PGY6 Progress Note Patient admits to bowel movement yesterday. Denies recurrence of small amount of rectal bleeding seen with wiping. States similar to irritation of hemorrhoids noted a few years ago. A 12-point review of systems negative except for as above. Objective - Vital Signs/Intake and Output Vital Signs (last 24 hours): Temp Pulse Resp BP Pulse Ox 97.3 F L 85 16 117/75 97 08/02/18 06:00 08/02/18 06:00 08/02/18 06:00 08/02/18 06:00 08/02/18 06:00 - Medications Medications: Current Medications Enoxaparin Sodium (Lovenox) 30 mg SC 0600 [facility]; Protocol Last Admin: 08/02/18 05:05 Dose: 30 mg Hydrochlorothiazide (Microzide) 12.5 mg PO DAILY [facility]; Protocol Last Admin: 08/01/18 11:17 Dose: 12.5 mg Hydrocortisone (Anusol-Hc) 1 gm [place] BID [facility] Last Admin: 08/01/18 17:56 Dose: Not Given Insulin Human Regular (Humulin R Low) 0 units SC [facility]; Protocol Last Admin: 08/02/18 06:32 Dose: Not Given Loperamide HCl (Imodium) 2 mg PO DAILY PRN PRN Reason: LBM Last Admin: 07/29/18 14:54 Dose: 2 mg Loratadine (Claritin) 5 mg PO HS [facility]; Protocol Last Admin: 08/01/18 21:12 Dose: 5 mg Losartan Potassium (Cozaar) 50 mg PO DAILY [facility] Last Admin: 08/01/18 11:17 Dose: 50 mg Magnesium Oxide (Mag-Ox) 400 mg PO BID [facility] Last Admin: 08/01/18 17:52 Dose: 400 mg Metformin HCl (Glucophage) 500 mg PO BID [facility] Last Admin: 08/01/18 17:53 Dose: 500 mg Ondansetron HCl (Zofran Inj) 4 mg IVP Q4H PRN PRN Reason: Nausea/Vomiting Pantoprazole Sodium (Protonix Ec Tab) 20 mg PO 0600 [facility] Last Admin: 08/02/18 05:06 Dose: 20 mg Paroxetine HCl (Paxil) 20 mg PO BID [facility] Last Admin: 08/01/18 17:53 Dose: 20 mg Tamsulosin HCl (Flomax) 0.4 mg PO 1800 [facility] Last Admin: 08/01/18 17:52 Dose: 0.4 mg - Labs Labs: 07/30/18 06:00 08/01/18 12:30 - Constitutional Appears: Non-toxic, No Acute Distress - Head Exam Head Exam: ATRAUMATIC, NORMOCEPHALIC - Eye Exam Eye Exam: EOMI, PERRL. absent: Scleral icterus Pupil Exam: PERRL. absent: Miosis, Mydriatic - ENT Exam ENT Exam: Mucous Membranes Moist, Normal Oropharynx - Neck Exam Neck Exam: Full ROM, Normal Inspection - Respiratory Exam Respiratory Exam: Clear to Ausculation Bilateral. absent: Rales, Rhonchi, Wheezes - Cardiovascular Exam Cardiovascular Exam: RRR, +S1, +S2. absent: Gallop, Rubs - GI/Abdominal Exam GI & Abdominal Exam: Soft, Normal Bowel Sounds. absent: Distended, Firm, Guarding, Rigid, Tenderness, Organomegaly, Rebound - Extremities Exam Extremities Exam: Normal Inspection. absent: Pedal Edema - Neurological Exam Neurological Exam: Alert, Awake - Psychiatric Exam Psychiatric exam: Normal Affect, Normal Mood - Skin Skin Exam: Dry, Intact, Normal Color, Warm Assessment and Plan - Assessment and Plan (Free Text) Assessment: 68 year old morbidly obese female with PMH of Diabetes, CKD, and HTN presenting with ongoing treatment of deconditioning in rehab after admission for sepsis 2/2 Ecoli UTI complicated by pyelonephritis s/p right ureteral stent on 07/23/18. GI consultation for diarrhea. No prior EGD or colonoscopy. Plan: -continue Prep-H as needed -normal formed stools last 48 hours -tolerating diet -patient agrees to outpatient follow up for elective colonoscopy for colorectal cancer screening <Grey Oden V - Last Filed: 08/02/18 23:52> Objective - Vital Signs/Intake and Output Vital Signs (last 24 hours): Temp Pulse Resp BP Pulse Ox 98.2 F 79 20 120/66 94 L 08/02/18 15:52 08/02/18 15:52 08/02/18 15:52 08/02/18 15:52 08/02/18 15:52 - Medications Medications: Current Medications Enoxaparin Sodium (Lovenox) 30 mg SC 0600 [facility]; Protocol Last Admin: 08/02/18 05:05 Dose: 30 mg Ferrous Gluconate (Fergon) 324 mg PO TID [facility] Last Admin: 08/02/18 17:33 Dose: 324 mg Hydrocortisone (Anusol-Hc) 1 gm LA BID [facility] Last Admin: 08/02/18 17:32 Dose: 1 applic Insulin Human Regular (Humulin R Low) 0 units SC ACHS [facility]; Protocol Last Admin: 08/02/18 21:26 Dose: Not Given Loperamide HCl (Imodium) 2 mg PO DAILY PRN PRN Reason: LBM Last Admin: 08/02/18 10:41 Dose: 2 mg Loratadine (Claritin) 5 mg PO HS [facility]; Protocol Last Admin: 08/02/18 21:17 Dose: 5 mg Losartan Potassium (Cozaar) 25 mg PO DAILY [facility] Last Admin: 08/02/18 10:35 Dose: 25 mg Magnesium Oxide (Mag-Ox) 400 mg PO BID [facility] Last Admin: 08/02/18 17:33 Dose: 400 mg Metformin HCl (Glucophage) 500 mg PO BID [facility] Last Admin: 08/02/18 17:33 Dose: 500 mg Ondansetron HCl (Zofran Inj) 4 mg IVP Q4H PRN PRN Reason: Nausea/Vomiting Pantoprazole Sodium (Protonix Ec Tab) 20 mg PO 0600 [facility] Last Admin: 08/02/18 05:06 Dose: 20 mg Paroxetine HCl (Paxil) 20 mg PO BID [facility] Last Admin: 08/02/18 17:32 Dose: 20 mg Tamsulosin HCl (Flomax) 0.4 mg PO 1800 [facility] Last Admin: 08/02/18 17:33 Dose: 0.4 mg Vitamin B Complex/Vit C/Folic Acid (Nephro-Aryan) 1 tab PO 0800 [facility] - Labs Labs: 07/30/18 06:00 08/01/18 12:30 Attending/Attestation - Attestation I have personally seen and examined this patient.: Yes I have fully participated in the care of the patient.: Yes I have reviewed all pertinent clinical information, including history, physical exam and plan: Yes Notes (Text): This is an addendum to GI progress report dictated by the GI Fellow.The patient was seen and examined earlier. Medical records, lab studies, imagings were reviewed. Last 24 hours events reviewed. Agreed with the above treatment plan as outlined in GI Fellow 's notes with the addition of the following 08/02/18 23:52
[2018-08-02] MEDS: Hydrocortisone 2.5% Rectal Cream(30 gm) PR SCH ×2 (10:34→17:32)
[2018-08-02] MEDS: Magnesium Oxide 400 mg Tab UD PO SCH ×2 (10:35→17:33)
--- NOTE | 2018-08-02 12:20 | CP.PCM.PN ---
Subjective - Date & Time of Evaluation Date of Evaluation: 08/02/18 Time of Evaluation: 12:19 - Subjective Subjective: Nephrology Consultation Note: Assessment: stable E Coli UTI with sepsis with Rt stone/hydronephrosis Acute Kidney Injury (N17.9) likely due to sepsis, ATN and some contribution by Rt stone/hydronephrosis: resolved Diabetic chronic Kidney Disease (E11.22) Chronic Kidney Disease (N18.3) Stage 3 with ? mg proteinuria (R80.9) likely due to DM/HTN/obesity recurrent kidney stones morbid obesity respi acidosis Plan No acute need for renal replacement therapy at this time. cr slight higher but should improve gradually. Hypertension control with meds as ordered. Maintain hemodynamics stable. Avoid hypotension. losartan resumed at lower dise Monitor Input/Output, daily weights supplement lytes as needed urology and ID recs appreciated from previous admission to medical service. will need outpt work up for recurrent kidney stones. added nephrovite and iron Dose meds/antibiotics for reduced GFR. Avoid fleets enema/magnesium based laxatives. Avoid nephrotoxins/NSAIDs/ iodinated contrast (unless needed emergently) Glycemic control Further work up/management as per primary team pt stable for d/c from renal perspective when planned with 1-2 week outpt follow up Thanks for allowing me to participate in care of your patient. Will follow patient with you. Please call if any Qs. had d/w team Dr Lele Guerin Office: [phone] Chief Complaint; too much urine Reason for consult: Acute Kidney Injury HPI: Pt is a 68 F with hx of diabetes Mellitus ( years), kidney stones, morbid o besity initially presented with complaints of fever and not feeling well, found to have urosepsis with Rt hydronephrosis with 11 mm stone s/p ureteric stone seen for BREE. denies any other complaints. no CP/SOB/nausea/vomitting. pt not aware about kidney disease in past. her baseline cr 1-1.3 suggestive of baseline CKD 3.d/c to [facility] and seen in consult today Denies OTC/herbal meds or NSAIDs No recent iodinated contrast exposure. No obvious episodes of low BP. ROS: Cardiovascular: No chest pain. Pulmonary: No shortness of breath Gastrointestinal: denies abdominal pain No nausea. No vomiting. Genitourinary: No pain while urinating. Denies blood in urine. says making lot of urine now All other negative except as mentioned in HPI. Physical Examination: General Appearance: Comfortable, in no acute respiratory distress, co-operative . morbid obesity Vitals reviewed and noted as below Head; Atraumatic, normocephalic ENT: no ulcers no thrush. Tongue is midline. Oropharynx: no rash or ulcers. EYES: Pupils are equal, round and reactive to light accommodation. Eye muscles and extraocular movement intact. Sclera is anicteric. Neck; supple no lymphadenopathy, no thyromegaly or bruit Lungs: Normal respiratory rate/effort. Breath sounds bilateral equal and clear Heart: Normal rate. s1s2 normal. No rub or gallop. Extremities: ankle edema trace. No varicose veins Neurological: Patient is alert, awake and oriented to person, place and time. No focal deficit. Strength bilateral appropriate and equal Skin: Warm and dry. Normal turgor. No rash. Palpitation: Normal elasticity for age Abdomen: Abdomen is soft. Bowel sounds +. There is no abdominal tenderness, no guarding/rigidity no organomegaly Psych: normal insight and normal affect/mood MSK: no joint tenderness or swelling. Digits and nails normal, no deformity : kidney or bladder not palpable Labs/imaging reviewed. Past medical history, past surgical history, family history, social history, allergy reviewed and noted as below Family hx: no hx of CKD. Rest non-contributory work up: imaging: rt side 11 mm stone with hydro pH: 7.27/pCo2: 56 urine/blood cx: E. Coli Objective - Vital Signs/Intake and Output Vital Signs (last 24 hours): Temp Pulse Resp BP Pulse Ox 97.3 F L 85 16 117/75 97 08/02/18 06:00 08/02/18 06:00 08/02/18 06:00 08/02/18 06:00 08/02/18 06:00 - Medications Medications: Current Medications Enoxaparin Sodium (Lovenox) 30 mg SC 0600 [facility]; Protocol Last Admin: 08/02/18 05:05 Dose: 30 mg Ferrous Gluconate (Fergon) 324 mg PO TID [facility] Hydrocortisone (Anusol-Hc) 1 gm [place] BID [facility] Last Admin: 08/02/18 10:34 Dose: Not Given Insulin Human Regular (Humulin R Low) 0 units SC ACHS [facility]; Protocol Last Admin: 08/02/18 06:32 Dose: Not Given Loperamide HCl (Imodium) 2 mg PO DAILY PRN PRN Reason: LBM Last Admin: 08/02/18 10:41 Dose: 2 mg Loratadine (Claritin) 5 mg PO HS [facility]; Protocol Last Admin: 08/01/18 21:12 Dose: 5 mg Losartan Potassium (Cozaar) 25 mg PO DAILY [facility] Last Admin: 08/02/18 10:35 Dose: 25 mg Magnesium Oxide (Mag-Ox) 400 mg PO BID [facility] Last Admin: 08/02/18 10:35 Dose: 400 mg Metformin HCl (Glucophage) 500 mg PO BID [facility] Last Admin: 08/02/18 10:35 Dose: 500 mg Ondansetron HCl (Zofran Inj) 4 mg IVP Q4H PRN PRN Reason: Nausea/Vomiting Pantoprazole Sodium (Protonix Ec Tab) 20 mg PO 0600 [facility] Last Admin: 08/02/18 05:06 Dose: 20 mg Paroxetine HCl (Paxil) 20 mg PO BID [facility] Last Admin: 08/02/18 10:34 Dose: 20 mg Tamsulosin HCl (Flomax) 0.4 mg PO 1800 [facility] Last Admin: 08/01/18 17:52 Dose: 0.4 mg Vitamin B Complex/Vit C/Folic Acid (Nephro-Aryan) 1 tab PO 0800 [facility] - Labs Labs: 07/30/18 06:00 08/01/18 12:30
--- NOTE | 2018-08-02 14:40 | PN ---
DATE: 08/01/2018 SUBJECTIVE: She is doing well. No complaints. Tolerating diet. Loose bowel movement, less than before. Please be advised this is a note for 08/01/2018. PHYSICAL EXAMINATION: VITAL SIGNS: Temperature 98, heart rate 79, blood pressure 116/76, respirations 18, sed rate 97% on room air. HEAD AND NECK: Normal. No JVD. No thyromegaly. CHEST: Clear bilaterally. HEART: First and second sounds normal. ABDOMEN: Soft, nontender. EXTREMITIES: No edema. NEUROLOGIC: Normal. LABORATORY DATA: Sodium 138, potassium 4.1, chloride 101, bicarb 26, BUN 22, and creatinine 1.4. Blood sugar 123. Calcium 9.9. Transferrin saturation is low. IMPRESSION AND PLAN: 1. Acute renal insufficiency. We are going to discontinue hydrochlorothiazide. Blood pressure stable. May be we will consider decreasing Cozaar from 50 to 25 and we will monitor her kidney functions. We will follow up with a mental health coordinator on this case. 2. Lower extremity edema. The patient advised to keep her leg elevated, ambulate in health. 3. History of depression. Continue Paxil 40 mg. 4. Diarrhea. Clostridium difficile negative. Continue current therapy. 5. Diabetes type 2. Continue metformin plus insulin coverage. 6. Continue gastrointestinal and deep venous thrombosis prophylaxis. She is getting Lovenox and Protonix 40 mg daily. Continue current therapy. Follow up clinically. She is getting Cipro, probably the last dose and we will stop it. We will continue current therapy and monitor the patient's condition. Matthias Romo MD
[2018-08-03] MEDS: Pantoprazole 20 mg EC Tab PO SCH (05:21)
[2018-08-03] MEDS: Enoxaparin 30 mg Syringe SC SCH (05:21)
[2018-08-03 05:53] VITALS: RESP 18; TEMP 97.6; O2SAT 96
[2018-08-03] MEDS: Insulin Reg-LOW-Coverage SC SCH (06:40)
[2018-08-03] MEDS ORDERED: Multivitamin Vitamin B Complex (Nephro-Vite) Tab PO SCH (08:00)
[2018-08-03] MEDS: Hydrocortisone 2.5% Rectal Cream(30 gm) PR SCH (09:27)
[2018-08-03] MEDS: Magnesium Oxide 400 mg Tab UD PO SCH (09:28)
[2018-08-03 09:31] VITALS: BP 133/87; PULSE 90
--- NOTE | 2018-08-03 10:53 | PN ---
DATE: 08/03/2018 SUBJECTIVE: The patient is stable, comfortable, no distress, just had 1 or 2 loose soft bowel movement, but not diarrhea and does not get up at night for bowel movement. She has no chest pain, no short of breath and walking better and finished her antibiotic. PHYSICAL EXAMINATION: VITAL SIGNS: On the , temperature 97.3, heart rate 85, blood pressure 117/75, respiration 16, sat 97%. HEAD AND NECK: Normal. No JVD, no thyromegaly. CHEST: Clear bilateral. CARDIAC: First sound and second sound normal. ABDOMEN: Soft, nontender. EXTREMITIES: Mild foot edema. NEUROLOGIC: Normal. LABORATORY STUDY: White count 8.6, hemoglobin 11.8, hematocrit 35.6, platelets 308. Chemistry: Sodium 138, potassium 4.1, chloride 101, bicarb 26, BUN 22, creatinine 1.4, blood sugar 123. The patient's transferrin is low. IMPRESSION AND PLAN: 1. Loose bowel movement secondary to medications. 2. Generalized weakness and gait disorder, continue physical therapy. 3. Anemia iron deficiency. GI has seen the patient, the patient on iron pills. The patient recommended to have a colonoscopy as outpatient. 4. Acute renal insufficiency, encouraged p.o. fluids. We will discontinue Lasix and discontinue hydrochlorothiazide. Continue Cozaar 25 mg p.o. daily. 5. Depression. Continue Paxil 40 mg daily. 6. Acute uncomplicated pyelonephritis, status post stent. She did very well, finished antibiotics. She is doing better. We discontinued metformin and continue insulin coverage. Continue current therapy, follow up clinically. Matthias Romo MD
--- NOTE | 2018-08-04 14:29 | DS ---
HISTORY OF PRESENT ILLNESS: The patient was admitted to TCU for physical therapy and continuation of antibiotic for urinary tract infection and complicated pyelonephritis. The patient was discharged on 08/03/2018. PHYSICAL EXAMINATION: VITAL SIGNS: Temperature 97.6, heart rate 86, blood pressure 118/71, respirations 18, saturation 96% on room air. HEAD AND NECK: Normal. No JVD, no thyromegaly. CHEST: Clear bilaterally. CARDIAC: First sound and second sound normal. ABDOMEN: Obese and nontender. EXTREMITIES: Mild edema in the foot area. LABORATORY DATA: Last labs were white count 8, hemoglobin 11.8, hematocrit 35.6, platelets 308. Her chemistry was within normal range. Blood sugar 100 and 120. No crazy numbers. Last BUN was 22, creatinine 1.4, sodium 128, potassium 4.1, chloride 101, bicarb 26. . Transferrin was . During the hospitalization, this patient was seen by Nephrology, Dr. Samuel and she was seen also by recommending colonoscopy. The patient has iron deficiency anemia. She also has renal insufficiency which seems better. We will plan to cut down the diuretics. Also, she has diabetes which was managed by sliding scale, seems to be doing well. DISCHARGE DIAGNOSES: 1. Complicated pyelonephritis with gram-negative infections and stenting placement and hydronephrosis. 2. Gram-negative urinary tract infection. 3. Acute renal insufficiency, improved. 4. Diabetes type 2. 5. Leg edema. 6. Iron deficiency anemia. 7. Morbid obesity. 8. Hypertension. 9. Chronic allergic rhinitis. 10. The patient does have history of chronic depression, stable. PLAN: Resume all medicines. Discharge her home and continue Flomax, Paxil 20 twice a day, metformin 500 twice a day, vitamin D complex, iron pills daily, Protonix 20 daily, magnesium oxide 400 twice a day, Cozaar 25 mg by mouth daily, Xyzal 5 mg half a pill daily, Imodium as needed, hydrocortisone, Anusol-HC was given for rectal area and iron pills mg by mouth twice a day. Resume all her previous medications. Follow up in the office within a week of discharge and we will plan to repeat labs as outpatient and followup with Urology for stent and possibly lithotripsy of the stone, 11 mm. Matthias Romo MD
== END 2018-08-03 13:57 | disposition home or self-care (01) | DRG 945 ==
LOC: TRCU 19:38
PROVIDERS: ADMIT Internal Medicine; ATTEND Internal Medicine
PROC: F07Z9FZ Gait Training/Functional Ambulation Treatment using Assistive, Adaptive, Supportive or Protective Equipment (ICD-10-PCS; 2018-07-28)
PROC: F07L6YZ Therapeutic Exercise Treatment of Musculoskeletal System - Lower Back / Lower Extremity using Other Equipment (ICD-10-PCS; 2018-07-28)
PROC: F08Z2FZ Grooming/Personal Hygiene Treatment using Assistive, Adaptive, Supportive or Protective Equipment (ICD-10-PCS; 2018-07-28)
PROC: 3E02340 Introduction of Influenza Vaccine into Muscle, Percutaneous Approach (ICD-10-PCS; principal; 2018-07-29)
PROC: 3E0234Z Introduction of Serum, Toxoid and Vaccine into Muscle, Percutaneous Approach (ICD-10-PCS; 2018-07-29)
PROC: F07Z5ZZ Bed Mobility Treatment (ICD-10-PCS; 2018-07-29)
PROC: F08Z1FZ Dressing Techniques Treatment using Assistive, Adaptive, Supportive or Protective Equipment (ICD-10-PCS; 2018-07-29)
DX: R53.1 Weakness (principal); A41.51 Sepsis due to Escherichia coli [E. coli]; N10 Acute pyelonephritis; N13.30 Unspecified hydronephrosis; Z68.41 Body mass index [BMI] 40.0-44.9, adult; E87.2 Acidosis; I12.9 Hypertensive chronic kidney disease with stage 1 through stage 4 chronic kidney disease, or unspecified chronic kidney disease; N18.3 Chronic kidney disease, stage 3 (moderate); E11.22 Type 2 diabetes mellitus with diabetic chronic kidney disease; F32.9 Major depressive disorder, single episode, unspecified; D50.9 Iron deficiency anemia, unspecified; G89.29 Other chronic pain; E66.01 Morbid (severe) obesity due to excess calories; M17.10 Unilateral primary osteoarthritis, unspecified knee; K21.9 Gastro-esophageal reflux disease without esophagitis; K56.41 Fecal impaction; Z79.84 Long term (current) use of oral hypoglycemic drugs; Z23 Encounter for immunization

== ENCOUNTER → 2018-09-05 | Day surgery (SDC) | payer MEDICARE ==
[~2018-09-05] MED LIST: HYDROmorphone 0.5 mg/0.5 ml ISec IVP PRN; Iohexol 240 (50 ml) ONE; Lactated Ringer's 1,000 ML IV SCH; Lidocaine 2% Jelly (Uro-Jet) ONE; Midazolam 2 MG/2 ML VIAL ONE; Propofol 10 mg/ml Inj (20 ML) ONE; cefTRIAXone (Rocephin) 1 gm Inj ONE; ePHEDrine 50 mg/ml Inj ONE
[2018-09-05 14:02] VITALS: RESP 20; TEMP 98.3
[2018-09-05 14:12] VITALS: BMI 44.6
[2018-09-05 14:53] VITALS: BP 130/72; PULSE 74; O2SAT 97
--- NOTE | 2018-09-06 00:10 | OP ---
PROCEDURE DATE: 09/05/2018 PREOPERATIVE DIAGNOSIS: Right renal pelvic calculus. POSTOPERATIVE DIAGNOSIS: Right renal pelvic calculus. PROCEDURES: Cystoscopy, right retrograde pyelogram, removal of right ureteral stent, right ureteroscopy, laser lithotripsy and basket extraction of right renal pelvic calculus. ATTENDING SURGEON: Evangelista Mcallister MD ANESTHESIA: General. SPECIMENS: Stone fragments were sent to Pathology. DRAINS: There were none. COMPLICATIONS: There were none. OPERATIVE FINDINGS: After informed consent was obtained, the patient was taken to operating room, placed on the operating table. Anesthesia was administered. The patient was then placed in the dorsal lithotomy position and prepped and draped in the usual sterile fashion. First, a 21-Kazakh cystoscope was passed into the patient's bladder, and a full survey inspection was performed. There was a stent noted exiting from the right ureteral orifice. The left ureteral orifice appeared within normal limits. There were no stones or tumors noted. At this point, a sensor wire was obtained. The sensor wire was passed through the scope and guided into the right ureteral orifice and advanced up to the right ureter under fluoroscopic guidance until it coiled in the upper collecting system. There was a large calcific density noted just adjacent to the wire. At this point, a grasping forceps was passed. The stent was grasped at its end and withdrawn through the urethral meatus. The stent was then removed while leaving the wire in place. At this point, the bladder was drained. The cystoscope was removed. An 8-Kazakh semi-rigid ureteroscope was passed under direct vision into the bladder and guided into the right ureteral orifice. The ureteroscope was advanced proximally under direct vision without difficulty until the renal pelvis was entered. In the renal pelvis, a large yellowish to tannish colored calculus was identified. At this point, there was good visualization of the stone. A holmium laser fiber was obtained. It was passed through the ureteroscope, and fragmentation of the stone was begun. Using the holmium laser, the stone was able to be fragmented into small pieces with none of the pieces appearing greater than approximately 2 mm in size. Most of the stone was obliterated into gravel. After the stone was completely obliterated, the laser was removed, and a Zero-tip nitinol basket was passed. There were two sizable fragments noted. Both fragments were able to be grasped with the basket in different passes and removed without difficulty and sent as specimen. On the final pass of the ureteroscope, there were no sizable fragments noted in either the renal pelvis or upper ureter. There was just some sand which was able to be irrigated out of the kidney. At this point, the ureteroscope was withdrawn under direct vision. The cystoscope was then re-passed while backloading the guidewire. A 5-Kazakh open-ended ureteral catheter was then passed over the guidewire into the ureter, and the wire was then removed. Contrast was then instilled into the system. There were no sizable filling defects noted. There were possible some small fragments in some of the calices. At this point, the open-ended ureteral catheter was then withdrawn. On delayed views, contrast was noted to be draining from the renal pelvis down the ureter and into the bladder. There was no evidence of extravasation of contrast. At this point, the procedure was completed. The bladder was drained. The cystoscope was removed. The patient tolerated the procedure well. She was taken to the recovery room awake in stable condition. Evangelista Mcallister MD
--- NOTE | 2018-09-06 09:59 | RAD ---
Date of service: 09/05/2018 PROCEDURE: Fluoroscopy up to 1 hr HISTORY: STENT REMOVAL / LASER LITHOTRIPSY / STONE REMOVAL / (RIGHT) COMPARISON: TECHNIQUE: Fluoroscopy was provided in the operating room. 43.7 sec of fluoro time. 14.17 mGy cumulative dose. Nine images submitted FINDINGS: The study shows removal of a right ureteral stent. A wire and scope are seen in the right ureter and collecting system. No filling defects seen on the final films. IMPRESSION: As above
== END | disposition home or self-care (01) ==
LOC: SDS 09:45
PROVIDERS: ATTEND Urology
DX: N20.2 Calculus of kidney with calculus of ureter (principal); I10 Essential (primary) hypertension; E11.9 Type 2 diabetes mellitus without complications; F32.89 Other specified depressive episodes
CPT/HCPCS: 52356; 88300; C1758; C1769; J0696; J1170; J2001; J2250; J2704; J3010; J7120 ×2; Q9966

== ENCOUNTER 2019-01-05 11:31 | Outpatient (CLI) | payer MEDICARE | END 2019-01-05 11:32 | disposition home or self-care (01) | LOC: LAB 11:31 ==